=== PATIENT | female | born 1970 | race African-American/Black ===

== ENCOUNTER 2017-05-17 00:26 | Emergency (ER) | payer OTHER ==
[2017-05-17 00:41] VITALS: TEMP 98.6; BMI 27.4
--- NOTE | 2017-05-17 00:52 | PDOC ---
History of Present Illness - General History Source: Patient Exam Limitations: No Limitations <Virginia Posadas - Last Filed: 05/17/17 05:33> - General History Source: Patient Exam Limitations: No Limitations - History of Present Illness Initial Comments: 05/17/17 00:57 The patient is a 46 year old female with a significant past medical history of asthma, hypertension, and surgical history of hysterectomy, who presents to the ER with left sided abdominal pain and flank pain for 25 minutes. Patient describes the pain as sharp. She states the pain wraps around from the left abdomen to the left flank. Patient states the pain feels like labor pains. Denies fever, chills, cough Denies nausea, vomiting, diarrhea Denies lightheadedness Denies headache Denies dysuria, hematuria, frequency, hesitancy <Coral Sosa - Last Filed: 05/17/17 06:29> - General Chief Complaint: Pain, Acute Stated Complaint: ABDOMINAL PAIN Time Seen by Provider: 05/17/17 00:29 Past History - Past Medical History Asthma: Yes HTN: Yes - Surgical History Abdominal Surgery: Yes (GASTRIC SLEEVE) Cholecystectomy: Yes - Immunization History Immunization Up to Date: Yes - Psycho/Social/Smoking Cessation Hx Anxiety: No Suicidal Ideation: No Smoking Status: No Smoking History: Never smoked Have you smoked in the past 12 months: No Number of Cigarettes Smoked Daily: 0 Information on smoking cessation initiated: No Hx Alcohol Use: No Drug/Substance Use Hx: No Substance Use Type: None <Virginia Posadas - Last Filed: 05/17/17 05:33> <Coral Sosa - Last Filed: 05/17/17 06:29> - Past Medical History Allergies/Adverse Reactions: Allergies Allergy/AdvReac Type Severity Reaction Status Date / Time No Known Allergies Allergy Verified 05/17/17 00:36 Home Medications: Ambulatory Orders Valsartan [Diovan] 0 mg PO DAILY 02/22/16 Amlodipine Besylate [Norvasc -] 5 mg PO DAILY #14 tablet 02/23/16 Naproxen [Naprosyn -] 500 mg PO BID PRN #14 tablet 05/17/17 Ondansetron HCl [Zofran] 4 mg PO BID PRN #10 tablet 05/17/17 Tamsulosin HCl [Flomax] 0.4 mg PO HS #10 capsule 05/17/17 Tramadol HCl 50 mg PO TID PRN #12 tablet MDD 3 05/17/17 Review of Systems - Review of Systems Able to Perform ROS?: Yes Comments:: 05/17/17 00:57 GENERAL/CONSTITUTIONAL: No: fever, chills, weakness, loss of appetite. HEAD, EYES, EARS, NOSE AND THROAT: No: change in vision, ear pain, discharge, sore throat, throat swelling. CARDIOVASCULAR: No: chest pain, lightheadedness, palpitations, syncope RESPIRATORY: No: cough, shortness of breath, wheezing, hemoptysis, stridor. GASTROINTESTINAL: (+) left sided abdominal pain. No: nausea, vomiting, diarrhea , rectal bleeding, constipation. GENITOURINARY: (+) left sided flank pain. No: dysuria, hematuria, frequency, urgency MUSCULOSKELETAL: No: back pain, neck pain, joint pain, muscle swelling or pain SKIN AND BREASTS: No: lesions, pallor, rash or easy bruising. NEUROLOGIC: No: headache, vertigo, paresthesias, weakness ENDOCRINE: No: unexplained weight gain or loss HEMATOLOGIC/LYMPHATIC: No: anemia, easy bleeding, swelling nodes <Uts,Coral - Last Filed: 05/17/17 06:29> *Physical Exam - Vital Signs Last Vital Signs Temp Pulse Resp BP Pulse Ox 98.6 F 82 22 123/83 100 05/17/17 00:36 05/17/17 00:36 05/17/17 00:36 05/17/17 00:36 05/17/17 00:36 <Virginia Posadas - Last Filed: 05/17/17 05:33> - Vital Signs Last Vital Signs Temp Pulse Resp BP Pulse Ox 98.6 F 82 22 123/83 100 05/17/17 00:36 05/17/17 00:36 05/17/17 00:36 05/17/17 00:36 05/17/17 00:36 - Physical Exam Comments: 05/17/17 00:59 GENERAL:Patient is crying during examination, holding left abdomen. Difficult to examine. HEAD: Normal with no signs of trauma. EYES: PERRLA, EOMI, sclera anicteric, conjunctiva clear. ENT: Ears normal, nares patent, oropharynx clear without exudates. Moist mucous membranes. EXTREMITIES: Normal range of motion, no edema. No clubbing or cyanosis. No erythema, or tenderness. NEUROLOGICAL: Cranial nerves II through XII grossly intact. Normal speech. No focal neurological deficits. SKIN: Warm, Dry, normal turgor, no rashes or lesions noted. <Coral Sosa - Last Filed: 05/17/17 06:29> ED Treatment Course - LABORATORY CBC & Chemistry Diagram: 05/17/17 00:59 05/17/17 00:59 <Virginia Posadas - Last Filed: 05/17/17 05:33> - LABORATORY CBC & Chemistry Diagram: 05/17/17 00:59 05/17/17 00:59 - RADIOLOGY Radiograph Interpretation: 05/17/17 04:[address] impression reported by Dr. Ion Busch MD: There is a 4 mm stone at the left ureterovesicular junction with moderate hydronephrosis and ureteral distention IMPRESSION: Obstructive uropathy <Coral Sosa - Last Filed: 05/17/17 06:29> Medical Decision Making - Medical Decision Making 05/17/17 00:52 A portion of this note was documented by scribe services under my direction. I have reviewed the details of the note, within reason, and agree with the documentation with the following case summary and management plan written by me. Nursing documentation reviewed and incorporated into medical decision making 05/17/17 01:58 This is a 46-year-old female h/o HTN, s/p cholecystectomy, s/p hysterectomy Pt presents to the ER due to severe left flank pain which pt describes as labor pain Symptoms began acutely 25 minutes prior to arrival to the ER Pt states she was being intimate with her when the pain began Pain is located in the left upper abdomen and wrap around to the left flank No prior stones No hematuria No pyuria No fevers or chills No trauma On examination initially, pt is writhing in pain Pt can not find a comfortable position Holding her left flank/abdomen 05/17/17 02:05 Upon re assessment pt states she feels better No abdominal pain No flank pain No guarding No rebound RRR Lungs clear Awaiting Spiral CT 05/17/17 02:20 color laboratory technician will not scan patient until test performed despite pt having had a hysterectomy years ago 05/17/17 02:39 Laboratory Tests 05/17/17 05/17/1705/17/17 00:59 00:59 02:11 WBC 6.7 D Hgb 11.7 Hct 36.6 Plt Count 209 BUN 11 Creatinine 1.0 Serum , Qual Negative 05/17/17 04:11 Unable to urinate 05/17/17 04:19 TECHNIQUE: CT of the Abdomen and Pelvis with serial axial images extending from the dome of the live through to the perineum was performed without contrast. FINDINGS: Kidneys: There is a 4 mm stone at the left ureterovesicular junction with moderate hydronephrosis and ureteral distention IMPRESSION: Obstructive uropathy 05/17/17 04:28 Awaiting UA 05/17/17 05:[address] Brandon Given nml renal function, no wbc on UA, pain controlled Pt likely will tolerate passing this stone at home Will discharge wiht pain medications and flomax will give abx as well Will ask pt to return to the ER for fevers, chills, increased pain <Virginia Posadas - Last Filed: 05/17/17 05:33> *DC/Admit/Observation/Transfer - Discharge Dispostion Admit: No <Virginia Posadas - Last Filed: 05/17/17 05:33> - Attestations Scribe Attestion: 05/17/17 01:04 Documentation prepared by Coral Sosa, acting as hospital medical assistant for Virginia Posadas MD. <Coral Sosa - Last Filed: 05/17/17 06:29> Diagnosis at time of Disposition: Ureterolithiasis, Kidney stone - Discharge Dispostion Disposition: HOME Condition at time of disposition: Stable - Prescriptions Prescriptions: Tamsulosin HCl [Flomax] 0.4 mg PO HS #10 capsule Naproxen [Naprosyn -] 500 mg PO BID PRN #14 tablet PRN Reason: Pain Tramadol HCl 50 mg PO TID PRN #12 tablet MDD 3 PRN Reason: Pain Ondansetron HCl [Zofran] 4 mg PO BID PRN #10 tablet PRN Reason: Nausea - Referrals Referrals: Roni Alexis MD., MD [Staff Physician] - Sinai Arias MD [Staff Physician] - - Patient Instructions Printed Discharge Instructions: DI for Kidney Stones, Extracorporeal Shock Wave Lithotripsy, Kidney Stones (Alternative Therapy) Additional Instructions: Ms. Thomas Thank you for coming in to the ER today You have a kidney stone you will likely pass it on your own Sometimes, it is difficulty to pass kidney stones In that case, you will need a procedure to make the stone small enough to pass For that reason, you should be sure to follow up with the Urologist within 1 week Please monitor yourself for fevers return to the ER for increased pain, fevers or chills, inability to tolerate foods or liquids, any other concerns or complaints - Post Discharge Activity Work/School Note: Back to Work
[2017-05-17] MEDS ORDERED: KETOROLAC TROMETHAMINE 30 MG/1 ML VIAL IVPUSH ONE (00:53)
[2017-05-17] MEDS ORDERED: morphine CARPU-JECT 4 MG/1 ML DISP.SYRIN IVPUSH ONE (00:53)
[2017-05-17] MEDS ORDERED: KETOROLAC TROMETHAMINE 30 MG/1 ML VIAL ONE (00:55)
[2017-05-17] MEDS ORDERED: morphine CARPU-JECT 4 MG/1 ML DISP.SYRIN ONE (00:55)
[2017-05-17 01:10] LABS: MCH 23.3 pg (25.7-33.7); MCHC 31.9 g/dl (32.0-36.0); MEAN PLT VOLUME 8.9 fl (7.5-11.1); PLATELET COUNT 209 K/MM3 (134-434); RDW 14.7 % (11.6-15.6); WHITE BLOOD COUNT 6.7 K/mm3 (4.0-10.0)
[2017-05-17 01:58] LABS: ALBUMIN 4.3 g/dl (3.4-5.0); ALK PHOS 89 U/L (45-117); ANION GAP 13 (8-16); BILIRUBIN,TOTAL 0.5 mg/dL (0.2-1.0); CALCIUM 9.6 mg/dL (8.5-10.1); CO2 27 mmol/L (21-32); GLUCOSE,RANDOM 104 mg/dL (74-106); SGOT/AST 23 U/L (15-37); SGPT/ALT 22 U/L (12-78); TOT PROT 7.8 g/dl (6.4-8.2)
[2017-05-17] MEDS ORDERED: ONDANSETRON 4 MG/2 ML VIAL IVPUSH ONE ×2 (04:11→04:18)
[2017-05-17] MEDS ORDERED: ONDANSETRON *ODT* 4 MG TABLET ONE (04:11)
[2017-05-17] MEDS ORDERED: SODIUM CHLORIDE 1,000 ML IV STA (04:20)
[2017-05-17 04:42] LABS: URINE APPEARANCE CLEAR; URINE BILIRUBIN NEGATIVE (NEGATIVE); URINE COLOR STRAW; URINE GLUCOSE (UA) NEGATIVE (NEGATIVE); URINE KETONE NEGATIVE (NEGATIVE); URINE LEUK ESTERASE NEGATIVE (NEGATIVE); URINE NITRITE NEGATIVE (NEGATIVE); URINE PROTEIN NEGATIVE (NEGATIVE); URINE UROBILINOGEN NEGATIVE E.U./dl (0.2-1.0)
[2017-05-17 04:50] LABS: URINE BLOOD 1+ (NEGATIVE)
[2017-05-17 04:51] LABS: URINE MUCUS RARE; URINE RBC 31 /hpf (0-3); URINE WBC 1 /hpf (3-5)
[2017-05-17] MEDS ORDERED: traMADol HCL 50 MG TABLET PO ONE (06:27)
[2017-05-17] MEDS ORDERED: traMADol HCL 50 MG TABLET ONE (06:29)
[2017-05-17 06:34] VITALS: BP 128/79; PULSE 76
== END 2017-05-17 06:35 | disposition home or self-care (01) ==
LOC: JER 00:26
PROC: 3E0337Z Introduction of Electrolytic and Water Balance Substance into Peripheral Vein, Percutaneous Approach (ICD-10-PCS; principal; 2017-05-17)
PROC: 3E033NZ Introduction of Analgesics, Hypnotics, Sedatives into Peripheral Vein, Percutaneous Approach (ICD-10-PCS; 2017-05-17)
PROC: 3E0333Z Introduction of Anti-inflammatory into Peripheral Vein, Percutaneous Approach (ICD-10-PCS; 2017-05-17)
PROC: 3E033GC Introduction of Other Therapeutic Substance into Peripheral Vein, Percutaneous Approach (ICD-10-PCS; 2017-05-17)
DX: N13.2 Hydronephrosis with renal and ureteral calculous obstruction (principal); I10 Essential (primary) hypertension; J45.909 Unspecified asthma, uncomplicated
CPT/HCPCS: 36415; 74176; 80053; 81003; 81015; 84703; 85027; 87086; 96361; 96374; 96375; 99282-25

== ENCOUNTER 2017-05-18 06:14 | Inpatient (IN) | payer OTHER ==
[2017-05-18 06:24] VITALS: BMI 26.6
[2017-05-18] MEDS ORDERED: KETOROLAC TROMETHAMINE 30 MG/1 ML VIAL IVPUSH ONE (06:36)
[2017-05-18] MEDS ORDERED: SODIUM CHLORIDE 1,000 ML IV STA (06:36)
[2017-05-18] MEDS ORDERED: ONDANSETRON 4 MG/2 ML VIAL IVPUSH ONE (06:36)
[2017-05-18] MEDS ORDERED: KETOROLAC TROMETHAMINE 30 MG/1 ML VIAL ONE (06:42)
[2017-05-18] MEDS ORDERED: ONDANSETRON 4 MG/2 ML VIAL ONE ×2 (06:42→12:23)
--- NOTE | 2017-05-18 06:42 | PDOC ---
History of Present Illness - General Chief Complaint: Pain, Acute Stated Complaint: PAIN/KIDNEY STONE Time Seen by Provider: 05/18/17 06:29 History Source: Patient, Significant Other Exam Limitations: No Limitations - History of Present Illness Travel History: No Initial Comments: 05/18/17 06:37 46yo Female patient w/ PmHx: Cholecystectomy, Gastric Sleeve, HTN, Hysterectomy , Asthma, and recently renal colic. Patient was seen in ED yesterday and diagnosed with 4 mm stone w/ hydronephrosis. Patient returns with worsening left flank pain, diminished urine output. She states taking the medications as was prescribed when discharged with no relief. Patient denies any other complaints at this time. 05/18/17 07:04 Timing/Duration: reports: getting worse Quality: reports: severe Abdominal Pain Onset Location: reports: flank (Left) Pain Radiation: reports: back Activities at Onset: reports: sleep Treatment Prior to Arrive: improves with: analgesics Aggravating Factors: worse with: None, Defecation, Eating, Emotional upset, Exertion, [place], Movement, Voiding, Change in position Alleviating Factors: worse with: None, Belching, Shallow Breathing, Defecation, Eating, Holding Breath, Passing Gas, Change in Position, Rest, Voiding, Vomiting Past History - Travel Traveled outside of the country in the last 30 days: No Close contact w/someone who was outside of country & ill: No - Past Medical History Allergies/Adverse Reactions: Allergies Allergy/AdvReac Type Severity Reaction Status Date / Time No Known Allergies Allergy Verified 05/18/17 06:22 Home Medications: Ambulatory Orders Valsartan [Diovan] 40 mg PO DAILY 02/22/16 Amlodipine Besylate [Norvasc -] 5 mg PO DAILY #14 tablet 02/23/16 Naproxen [Naprosyn -] 500 mg PO BID PRN #14 tablet 05/17/17 Ondansetron HCl [Zofran] 4 mg PO BID PRN #10 tablet 05/17/17 Tamsulosin HCl [Flomax] 0.4 mg PO HS #10 capsule 05/17/17 Tramadol HCl 50 mg PO TID PRN #12 tablet MDD 3 05/17/17 Asthma: Yes Disorders: Yes (renal stones) HTN: Yes - Surgical History Abdominal Surgery: Yes (GASTRIC SLEEVE) Cholecystectomy: Yes - Immunization History Immunization Up to Date: Yes - Psycho/Social/Smoking Cessation Hx Anxiety: No Suicidal Ideation: No Smoking Status: No Smoking History: Never smoked Have you smoked in the past 12 months: No Number of Cigarettes Smoked Daily: 0 Hx Alcohol Use: No Drug/Substance Use Hx: No Substance Use Type: None Abd/GI Specific PMHX - Complaint Specific PMHX Colitis: No Diverticulitis: No Gall Bladder Disease: No GERD: No Hepatitis: No Pancreatitis: No GI Ulcer Disease: No Review of Systems - Review of Systems Able to Perform ROS?: Yes Is the patient limited Serbian proficient: No ABD/GI: Yes: Nausea, Abdominal cramping. No: Diarrhea, Poor Appetite, Poor Fluid Intake, Vomiting : Yes: Dysuria Musculoskeletal: Yes: Back Pain (Left Flank) All Other Systems: Reviewed and Negative *Physical Exam - Vital Signs Last Vital Signs Temp Pulse Resp BP Pulse Ox 97.7 F 81 28 H 140/99 100 05/18/17 06:23 05/18/17 06:23 05/18/17 06:23 05/18/17 06:23 05/18/17 06:23 - Physical Exam General Appearance: Yes: Nourished, Appropriately Dressed, Apparent Distress, Moderate Distress. No: Mild Distress, Severe Distress Neck: positive: Trachea midline, Supple. negative: Stridor, Lymphadenopathy (R) , Lymphadenopathy (L) Respiratory/Chest: positive: Lungs Clear, Normal Breath Sounds. negative: Chest Tender, Respiratory Distress, Accessory Muscle Use, Labored Respiration, Rapid RR Cardiovascular: positive: Regular Rhythm, Regular Rate Gastrointestinal/Abdominal: positive: Normal Bowel Sounds, Tender (LLQ), Soft, Guarding, Tenderness. negative: Distended, Rebound Musculoskeletal: positive: Normal Inspection, CVA Tenderness, CVA Tenderness (L) . negative: CVA Tenderness (R), Vertebral Tenderness Extremity: positive: Normal Capillary Refill, Normal Inspection, Normal Range of Motion. negative: Pedal Edema, Swelling, Calf Tenderness, Erythema, Inflammation Integumentary: positive: Normal Color, Dry, Warm Neurologic: positive: death claim examiner II-XII NML intact, Fully Oriented, Alert, Normal Mood/ Affect, Normal Response, Motor Strength 5/5 ED Treatment Course - LABORATORY CBC & Chemistry Diagram: 05/18/17 06:47 05/18/17 06:47 - RADIOLOGY Radiology Studies Ordered: Category Date Time Status ABDOMEN & PELVIS CT W/O CONTR [CT] Stat CT Scan 05/18/17 06:36 Ordered
[2017-05-18 06:59] LABS: BASOPHIL 0.9 % (0-2.0); EOSINOPHIL 0.4 % (0-4.5); MCH 23.7 pg (25.7-33.7); MEAN CELL VOLUME 74.1 fl (80-96); MEAN PLT VOLUME 8.8 fl (7.5-11.1); NEUTROPHILS 44.4 % (42.8-82.8); PLATELET COUNT 193 K/MM3 (134-434); RDW 14.9 % (11.6-15.6); WHITE BLOOD COUNT 6.9 K/mm3 (4.0-10.0)
--- NOTE | 2017-05-18 06:59 | PDOC ---
*Physical Exam - Vital Signs Last Vital Signs Temp Pulse Resp BP Pulse Ox 97.7 F 81 28 H 140/99 100 05/18/17 06:23 05/18/17 06:23 05/18/17 06:23 05/18/17 06:23 05/18/17 06:23 ED Treatment Course - LABORATORY CBC & Chemistry Diagram: 05/18/17 06:47 05/18/17 06:47 - Medications Given in the ED: ED Medications Discontinued Medications Generic Name Dose Route Start Last Admin Trade Name Freq PRN Reason Stop Dose Admin Ketorolac Tromethamine 30 mg 05/18/17 06:36 05/18/17 06:50 Toradol Injection - IVPUSH 05/18/17 06:37 30 mg ONCE ONE Administration Ondansetron HCl 4 mg 05/18/17 06:36 05/18/17 06:50 Zofran Injection IVPUSH 05/18/17 06:37 4 mg ONCE ONE Administration Medical Decision Making - Medical Decision Making 05/18/17 06:59 agree with care from JO-ANN Zeng *DC/Admit/Observation/Transfer Diagnosis at time of Disposition: Obstructive uropathy - Discharge Dispostion Condition at time of disposition: Stable
--- NOTE | 2017-05-18 07:21 | PDOC ---
ED Treatment Course - LABORATORY CBC & Chemistry Diagram: 05/18/17 06:47 05/18/17 06:47 - ADDITIONAL ORDERS Additional order review: 05/18/17 06:47 RBC 4.63 MCV 74.1 L MCHC 32.0 RDW 14.9 MPV 8.8 Neutrophils % 44.4 D Lymphocytes % 48.4 H Monocytes % 5.9 Eosinophils % 0.4 Basophils % 0.9 - Medications Given in the ED: ED Medications Discontinued Medications Generic Name Dose Route Start Last Admin Trade Name Christen PRN Reason Stop Dose Admin Ketorolac Tromethamine 30 mg 05/18/17 06:36 05/18/17 06:50 Toradol Injection - IVPUSH 05/18/17 06:37 30 mg ONCE ONE Administration Ondansetron HCl 4 mg 05/18/17 06:36 05/18/17 06:50 Zofran Injection IVPUSH 05/18/17 06:37 4 mg ONCE ONE Administration Progress Note - Progress Note Progress Note: I have received report from JO-ANN Zeng regarding this patient. Pt's initial chief complaint: worsened left flank pain with decreased urine output Pt's work up completed prior to sign out: labs, UA Pt treatment given from prior staff: IV fluids, zofran, toradol Pt plan to be completed: Awaiting CT scan abd/pelvis Dispo: Pending Medical Decision Making - Medical Decision Making A/P: 46 y/o female seen here on 05/17 and diagnosed with obstructive uropathy ( 4mm stone) and discharged to home to pass stone on her own. The patient returned this morning with worsening pain. She was initially assessed by JO-ANN Zeng. Awaiting CT scan abd/pelvis. CT scan abd/pelvis IMPRESSION: Obstructing calculus in the left UVJ. The results are the same as 24 hours ago. The stone has not moved. The patient is writhing in pain. Ordered 4mg IV morphine. Will microblog hospitalist for admission. Will also call urology. Spoke with Dr. Kemp who will remove stone. Spoke with Dr. Hernandez who accepts admission to med/surg via [facility] Ordered Flomax and IV fluids at 150cc/hr Patient is aware of the plan. She states she is having some relief from morphine *DC/Admit/Observation/Transfer Diagnosis at time of Disposition: Obstructive uropathy - Discharge Dispostion Condition at time of disposition: Stable Admit: Yes - Referrals Referrals: Anu Dillard MD [Primary Care Provider] -
[2017-05-18] MEDS ORDERED: morphine CARPU-JECT 4 MG/1 ML DISP.SYRIN IVPUSH ONE (07:23)
[2017-05-18] MEDS ORDERED: morphine CARPU-JECT 4 MG/1 ML DISP.SYRIN ONE ×2 (07:25→12:23)
[2017-05-18 07:38] LABS: ALK PHOS 86 U/L (45-117); ANION GAP 10 (8-16); BILIRUBIN,TOTAL 0.6 mg/dL (0.2-1.0); CALCIUM 9.2 mg/dL (8.5-10.1); CO2 28 mmol/L (21-32); CREATININE 1.4 mg/dL (0.55-1.02); GLUCOSE,RANDOM 108 mg/dL (74-106); SGOT/AST 22 U/L (15-37); SGPT/ALT 25 U/L (12-78); TOT PROT 7.1 g/dl (6.4-8.2)
[2017-05-18] MEDS ORDERED: TAMSULOSIN HCL 0.4 MG CAP.ER.24H (FP) PO ONE (08:25)
[2017-05-18] MEDS: SODIUM CHLORIDE 1,000 ML IV SCH ×2 (08:35→17:27)
[2017-05-18] MEDS ORDERED: TAMSULOSIN HCL 0.4 MG CAP.ER.24H (FP) ONE (08:37)
[2017-05-18] MEDS ORDERED: morphine CARPU-JECT 2 MG/1 ML DISP.SYRIN IVPUSH PRN (10:35)
--- NOTE | 2017-05-18 10:35 | HP ---
CHIEF COMPLAINT: left lower abdominal pain PCP: HISTORY OF PRESENT ILLNESS: This is a 46 yo woman with PMH asthma, HTN and TAHBSO> 20 years ago who presents with continued left sided abdominal pain s/p diagnosis of left sided renal calculi. She states that the pain has not changed over the past 3 days- currently 03/31. Patient has been experiencing nausea with occasional vomiting. 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 Lives in apartment with and 2 adult children Family History: Allergies No Known Allergies Allergy (Verified 05/18/17 06:22) HOME MEDICATIONS: Home Medications 3 Medication Instructions Recorded Valsartan [Diovan] 40 mg PO DAILY 02/22/16 Amlodipine Besylate [Norvasc -] 5 mg PO DAILY #14 tablet 02/23/16 Naproxen [Naprosyn -] 500 mg PO BID PRN #14 tablet 05/17/17 Ondansetron HCl [Zofran] 4 mg PO BID PRN #10 tablet 05/17/17 Tamsulosin HCl [Flomax] 0.4 mg PO HS #10 capsule 05/17/17 Tramadol HCl 50 mg PO TID PRN #12 tablet MDD 3 05/17/17 REVIEW OF SYSTEMS CONSTITUTIONAL: Absent: fever, chills, diaphoresis, generalized weakness, malaise, loss of appetite, weight change HEENT: Absent: rhinorrhea, nasal congestion, throat pain, throat swelling, difficulty swallowing, mouth swelling, ear pain, eye pain, visual changes CARDIOVASCULAR: Absent: chest pain, syncope, palpitations, irregular heart rate, lightheadedness , peripheral edema RESPIRATORY: Absent: cough, shortness of breath, dyspnea with exertion, orthopnea, wheezing, stridor, hemoptysis GASTROINTESTINAL: Present- abdominal pain, nausea, vomiting Absent: abdominal distension, diarrhea, constipation, melena, hematochezia GENITOURINARY: Absent: dysuria, frequency, urgency, hesitancy, hematuria, flank pain, genital pain MUSCULOSKELETAL: Absent: myalgia, arthralgia, joint swelling, back pain, neck pain SKIN: Absent: rash, itching, pallor HEMATOLOGIC/IMMUNOLOGIC: Absent: easy bleeding, easy bruising, lymphadenopathy, frequent infections ENDOCRINE: Absent: unexplained weight gain, unexplained weight loss, heat intolerance, cold intolerance NEUROLOGIC: Absent: headache, focal weakness or paresthesias, dizziness, unsteady gait, seizure, mental status changes, bladder or bowel incontinence PSYCHIATRIC: Absent: anxiety, depression, suicidal or homicidal ideation, hallucinations. PHYSICAL EXAMINATION GENERAL: Awake, alert, and fully oriented, in no acute distress. HEAD: Normal with no signs of trauma. EYES: Pupils equal, round and reactive to light, extraocular movements intact, sclera anicteric, conjunctiva clear. No lid lag. EARS, NOSE, THROAT: Ears normal, nares patent, oropharynx clear without exudates. Moist mucous membranes. NECK: Normal range of motion, supple without lymphadenopathy, JVD, or masses. LUNGS: Breath sounds equal, clear to auscultation bilaterally. No wheezes, and no crackles. No accessory muscle use. HEART: Regular rate and rhythm, normal S1 and S2 without murmur, rub or gallop. ABDOMEN: Soft, not distended, normoactive bowel sounds, no rebound, no masses. No hepatomegaly or splenomegaly. Tenderness and guarding to LLQ. MUSCULOSKELETAL: Normal range of motion at all joints. No bony deformities or tenderness. Left CVA tenderness. UPPER EXTREMITIES: 2+ pulses, warm, well-perfused. No cyanosis. No clubbing. No peripheral edema. LOWER EXTREMITIES: 2+ pulses, warm, well-perfused. No calf tenderness. No peripheral edema. NEUROLOGICAL: Cranial nerves II-XII intact. Normal speech. Normal gait. PSYCHIATRIC: Cooperative. Good eye contact. Appropriate mood and affect. SKIN: Warm, dry, normal turgor, no rashes or lesions noted, normal capillary refill. Imaging: CTAP- Limited study with left calculus in UVJ. Mild hydronephrosis present. Study without significant change since previous exam 05/17. ASSESSMENT/PLAN: A: 46 yo with CHASE due to obstructing left renal calculi. Dr Kemp to evaluate today for extraction. P: 1. CHASE from urinary obstruction - NS@150 - Flomax 0.4mg daily - strain urine - urine cx pending - Urology- Viridiana consulted for stone retrieval - trend BMP 2. Pain - morphine 2mg IVP prn to keep pain level <6/10 3. HTN - slightly elevated on arrival likely from pain - continue valsartan 40mg 4. Asthma - well controlled 5.F/E/N - NPO pending for stenting vs retrieval - NS@150 - replete prn 6. PPX - OOB Dispo- requires observation for her acute medical condition Code Status- FULL CODE Visit type - Emergency Visit Emergency Visit: Yes ED Registration Date: 05/18/17 Care time: The patient presented to the Emergency Department on the above date and was hospitalized for further evaluation of their emergent condition. - New Patient This patient is new to me today: Yes Date on this admission: 05/18/17 - Critical Care Critical Care patient: No
[2017-05-18] MEDS ORDERED: ONDANSETRON 4 MG/2 ML VIAL IVPUSH PRN (10:38)
[2017-05-18 19:32] LABS: URINE APPEARANCE CLEAR; URINE BILIRUBIN NEGATIVE (NEGATIVE); URINE BLOOD 3+ (NEGATIVE); URINE COLOR STRAW; URINE GLUCOSE (UA) NEGATIVE (NEGATIVE); URINE KETONE NEGATIVE (NEGATIVE); URINE LEUK ESTERASE NEGATIVE (NEGATIVE); URINE NITRITE NEGATIVE (NEGATIVE); URINE PROTEIN NEGATIVE (NEGATIVE); URINE UROBILINOGEN NEGATIVE E.U./dl (0.2-1.0)
[2017-05-18 19:33] LABS: URINE MUCUS RARE; URINE RBC 52 /hpf (0-3); URINE WBC 3 /hpf (3-5)
[2017-05-18] MEDS ORDERED: TAMSULOSIN HCL 0.4 MG CAP.ER.24H (FP) PO SCH (22:00)
[2017-05-19 07:18] LABS: BASOPHIL 0.7 % (0-2.0); EOSINOPHIL 1.8 % (0-4.5); MCH 23.7 pg (25.7-33.7); MCHC 32.3 g/dl (32.0-36.0); MEAN CELL VOLUME 73.5 fl (80-96); NEUTROPHILS 37.9 % (42.8-82.8); PLATELET COUNT 144 K/MM3 (134-434); RDW 14.8 % (11.6-15.6); WHITE BLOOD COUNT 4.3 K/mm3 (4.0-10.0)
[2017-05-19 07:57] LABS: ANION GAP 8 (8-16); CALCIUM 8.3 mg/dL (8.5-10.1); CO2 29 mmol/L (21-32); CREATININE 0.7 mg/dL (0.55-1.02); GLUCOSE,RANDOM 79 mg/dL (74-106)
[2017-05-19] MEDS ORDERED: amLODIPine BESYLATE 5 MG TABLET (FP) PO SCH (10:00)
[2017-05-19] MEDS ORDERED: VALSARTAN 40 MG TABLET (FP) PO SCH (10:00)
[2017-05-19] MEDS: SODIUM CHLORIDE 1,000 ML IV SCH ×3 (13:58→23:51)
--- NOTE | 2017-05-19 14:37 | CON.GU ---
Consult Consult Specialty:: Urology Referred by:: Denae Reason for Consultation:: L ureteral calculus - History of Present Illness Chief Complaint: abd pain History of Present Illness: 46 yo f w PMH HTN and asthma pres to ER c/o L sided abd pain assoc w N and V x 5 days found to have L UVJ calculus. cons req. - History Source History Provided By: Patient, Medical Record Limitations to Obtaining History: No Limitations - Past Medical History Cardio/Vascular: Yes: HTN Pulmonary: Yes: Asthma Renal/: Yes: Renal Calculi - Past Surgical History Past Surgical History: Yes: Hysterectomy - Alcohol/Substance Use Hx Alcohol Use: No - Smoking History Smoking history: Never smoked Have you smoked in the past 12 months: No Aproximately how many cigarettes per day: 0 Home Medications - Allergies Allergies/Adverse Reactions: Allergies Allergy/AdvReac Type Severity Reaction Status Date / Time No Known Allergies Allergy Verified 05/18/17 06:22 - Home Medications Home Medications: Ambulatory Orders Valsartan [Diovan] 40 mg PO DAILY 02/22/16 Amlodipine Besylate [Norvasc -] 5 mg PO DAILY #14 tablet 02/23/16 Naproxen [Naprosyn -] 500 mg PO BID PRN #14 tablet 05/17/17 Ondansetron HCl [Zofran] 4 mg PO BID PRN #10 tablet 05/17/17 Tamsulosin HCl [Flomax] 0.4 mg PO HS #10 capsule 05/17/17 Tramadol HCl 50 mg PO TID PRN #12 tablet MDD 3 05/17/17 Review of Systems - Review of Systems Gastrointestinal: reports: Abdominal Pain, Nausea, Vomiting Physical Exam- Vital Signs: Vital Signs Temperature 98.3 F 05/19/17 10:00 Pulse Rate 45 L 05/19/17 10:00 Respiratory Rate 18 05/19/17 10:00 Blood Pressure 107/67 05/19/17 10:00 O2 Sat by Pulse Oximetry (%) 98 05/19/17 14:00 Constitutional: Yes: Well Nourished, No Distress, Calm Gastrointestinal: Yes: Normal Bowel Sounds, Soft Renal/: Yes: WNL Pelvis: Yes: WNL External Genitalia: Yes: WNL Musculoskeletal: Yes: WNL Extremities: Yes: WNL Imaging - Results Cat Scan: Report Reviewed Assessment/Plan Imp: L UVJ calculus, CHASE Plan : IVFS, flomax, analgesia, L ureteroscopic laser lithotripsy and JJ stent insertion
--- NOTE | 2017-05-19 14:46 | HP ---
History & Physical Update - History History: No Change - Physical Physical: No Change - Assessment Assessment: No Change - Plan Plan: No Change
--- NOTE | 2017-05-19 15:34 | OP ---
Operative Note - Note: Operative Date: 05/19/17 Pre-Operative Diagnosis: L ureteral calculus Operation: L ureteroscopic laser lithotripsy and L JJ stent insertion Findings: L distal ureteral calculi Post-Operative Diagnosis: Same as Pre-op Surgeon: Robert Kemp Anesthesiologist/ADMISSIONS CONSULTANT: Bryn Garcia Anesthesia: General Estimated Blood Loss (mls): 0 Drains & Tubes with Location: 6 fr 24 cm L JJ stent Operative Report Dictated: Yes
[2017-05-19] MEDS ORDERED: PROPOFOL 20 ML ONE (15:41)
[2017-05-19] MEDS ORDERED: MIDAZOLAM HCL 2 MG/2 ML SINGLE DOSE VIAL ONE (15:41)
--- NOTE | 2017-05-19 16:03 | PN ---
Physical Exam: SUBJECTIVE: Patient seen and examined at bed side this morning. No abdominal complaints. Denies chest pain, sob, cough, palpitation, abdominal pain, nausea or vomiting. Bowel/Bladder habit normal. Sleep normal. OBJECTIVE: Vital Signs Period Temp Pulse Resp BP Sys/Gonzalez Pulse Ox Last 24 Hr 98.2 F-98.2 F 49-60 20 140-140/80-81 98 GENERAL: Young female, is lying comfortably in bed, is awake, alert, and fully oriented, in no acute distress. HEAD: Normal with no signs of trauma. EYES: EOM intact, no pallor or icterus. ENT: Ears normal, moist mucous membranes. NECK: Trachea midline, full range of motion, supple. LUNGS: Breath sounds equal, clear to auscultation bilaterally, no wheezes, no crackles, no accessory muscle use. HEART: Regular rate and rhythm, S1, S2 without murmur. ABDOMEN: Surgical scar page, Soft, nontender, nondistended, normoactive bowel sounds, no guarding, no rebound, no hepatosplenomegaly, no masses. FLANK: Left sided CVA tenderness. EXTREMITIES: 2+ pulses, warm, well-perfused, no edema. NEUROLOGICAL: Cranial nerves II through XII grossly intact. Normal speech, gait not observed. PSYCH: Normal mood, normal affect. SKIN: Warm, dry, normal turgor, no rashes or lesions noted Active Medications Generic Name Dose Route Start Last Admin Trade Name Freq PRN Reason Stop Dose Admin Amlodipine Besylate 5 mg 05/19/17 10:00 05/19/17 10:47 Norvasc - PO Not Given DAILY DOMINIK Sodium Chloride 1,000 mls @ 150 mls/hr 05/18/17 08:30 05/19/17 13:58 Normal Saline - IV Not Given ASDIR DOMINIK Morphine Sulfate 2 mg 05/18/17 10:35 Morphine Injection - IVPUSH Q4H PRN PAIN Tamsulosin HCl 0.4 mg 05/18/17 22:00 05/18/17 21:07 Flomax - PO 0.4 mg HS DOMINIK Administration Valsartan 40 mg 05/19/17 10:00 05/19/17 10:47 Diovan - PO Not Given DAILY DOMINIK ASSESSMENT/PLAN: Patient is a 46 year old male with significant past medical history of Asthma, Hypertensio, Hysterectomy >20 years, Gastric sleeve 2yrs ago (lost 100 lbs) presented to the ED with complaints of left sided flank pain admitted for evaluation of Renal colic. # Renal calculi with mild left hydronephrosis s/p L ureteroscopic laser lithotripsy and L JJ stent insertion "Day 0" Presented with left flank pain x 2 days, visited the ED x2 days ago, was sent home on flomax, returned back with the same problem Abd/Pelvis CT- 4mm stone in the UVP with Left hydronephrosis NPO IV NS @ 150mls/hr Flomax 0.4mg daily Lithotripsy done today Urologist consult appreciated F/up urine culture # Acute Kidney Injury likely due to dehydration Creatinine improved to 0.7 after IV Hydration Continue IV NS @ 150mls/hr # Hypertension now hypotensive Hold home medication valsartan and Amlodipine 5mg PO daily # Asthma-not in exacerbation # FEN IV NS @ 150mls/hr Electrolytes to be repeated tomorrow NPO now, Sodium controlled diet after dinner # Prophylaxis For DVT: On SCDs For GI: Not indicated # Code status: Full Code # Dispo: Admitted in Med-Surg. Duration of stay unknown. Illness, Investigation and Plan of care explained to the patient. She verbalized understanding. Case discussed with Dr. Torres. Visit type - Emergency Visit Emergency Visit: Yes ED Registration Date: 05/19/17 Care time: The patient presented to the Emergency Department on the above date and was hospitalized for further evaluation of their emergent condition. - New Patient This patient is new to me today: No - Critical Care Critical Care patient: No - Discharge Referral Referred to [facility] Med P.C.: No
[2017-05-19] MEDS ORDERED: ceFAZolin SODIUM 1 GM VIAL IVPB ONE (16:05)
[2017-05-19] MEDS ORDERED: DEXAMETHASONE SOD PHOSPHATE 4 MG/1 ML VIAL ONE (16:15)
[2017-05-19] MEDS ORDERED: ceFAZolin SODIUM 1 GM VIAL ONE (16:15)
[2017-05-19] MEDS ORDERED: morphine CARPU-JECT 2 MG/1 ML DISP.SYRIN IVPUSH PRN (17:19)
[2017-05-19] MEDS ORDERED: LACTATED RINGERS SOLUTION 1,000 ML IV SCH (18:00)
[2017-05-19] MEDS: amLODIPine BESYLATE 5 MG TABLET (FP) PO SCH (18:29)
[2017-05-19] MEDS: VALSARTAN 40 MG TABLET (FP) PO SCH (18:29)
--- NOTE | 2017-05-19 18:29 | PN ---
Teaching Attending Note Name of Resident: Jennifer Schultz ATTENDING PHYSICIAN STATEMENT I saw and evaluated the patient. I reviewed the resident's note and discussed the case with the resident. I agree with the resident's findings and plan as documented. SUBJECTIVE: seen at 11 am , pain had improved by then . OBJECTIVE: NA D Cv : RRR Lung s: CTAB ext : no edema ABd : soft, TTP in LLQ , LUQ , L CVA tenderness nl BS ASSESSMENT AND PLAN: 46 y/o LAdy withh/o asthma, HTN , nephrolithiasis who presented with L abd pain , was found to have obstructing L UVJ stone with L sided hydronephrosis 1- Obstructing L UVJ stone with L sided hydronephrosis: s/p cystoscopy with lithotripsy and stent placement no evidence of UTI. decrease IVF , dc in am pain control if needed dc in am
--- NOTE | 2017-05-19 18:35 | OP ---
DATE OF OPERATION: 05/19/2017 PREOPERATIVE DIAGNOSIS: Left ureteral calculus. POSTOPERATIVE DIAGNOSIS: Left ureteral calculus. PROCEDURE: Cystoscopy, left ureteroscopic laser lithotripsy and left JJ stent insertion. SURGEON: Robert Whitney MD DREDGE CAPTAIN: None. ANESTHESIA: General via laryngeal mask. ANESTHESIOLOGIST: Jose. SPECIMENS: None. CULTURES: None. DRAINS: A 6-Djiboutian 24 cm left JJ stent. ESTIMATED BLOOD LOSS: None. COMPLICATIONS: None. DESCRIPTION OF PROCEDURE: The patient was brought into the operating room and placed on the operating room table in supine position. After administration of general anesthesia via laryngeal mask, intravenous antibiotics were administered and the patient was placed in the dorsal lithotomy position. The vagina and perineum were prepped and draped in the usual sterile manner. A 22-Djiboutian cystoscope was inserted into the bladder with the obturator in place. The obturator was removed and urine was evacuated. The 30-degree telescope was inserted and cystoscopy was performed. This demonstrated no foreign bodies, tumors, stones, or inflammation. Both ureteral orifices were in their usual location with clear efflux bilaterally. The left ureteral orifice was cannulated with a 0.038 guidewire, which was advanced to the level of the left renal pelvis under fluoroscopic and direct visual guidance. The bladder was emptied. The cystoscope was removed. Now, semirigid ureteroscope was inserted alongside the guidewire where a distal left ureteral calculus was visualized. The 365 micron laser fiber was inserted. Laser lithotripsy was done until the stone was fragmented into minute pieces. The ureteroscope was removed and retrograde pyelogram was done demonstrating mild left hydronephrosis. No extravasation of contrast. No filling defects. The 6-Djiboutian 24 cm left JJ stent was now inserted over the guidewire under direct visual and fluoroscopic guidance leaving one coil in the renal pelvis and one coil in the bladder. The bladder was emptied. The instruments were removed. The stent was secured to the thigh with a Tegaderm. She tolerated the procedure well and was transferred to the recovery room in stable condition. She will be followed in the office for stent removal. ROBERT WHITNEY M.D. [id number]
[2017-05-19] MEDS ORDERED: TAMSULOSIN HCL 0.4 MG CAP.ER.24H (FP) PO SCH (22:00)
[2017-05-19] MEDS ORDERED: ONDANSETRON 4 MG/2 ML VIAL IVPUSH PRN (23:35)
[2017-05-19] MEDS ORDERED: ONDANSETRON 4 MG/2 ML VIAL IVPB PRN (23:40)
[2017-05-20] MEDS: SODIUM CHLORIDE 1,000 ML IV SCH (06:08)
[2017-05-20 06:54] VITALS: TEMP 98.8
[2017-05-20 08:22] LABS: MCH 23.8 pg (25.7-33.7); MCHC 32.7 g/dl (32.0-36.0); MEAN CELL VOLUME 72.7 fl (80-96); MEAN PLT VOLUME 9.1 fl (7.5-11.1); PLATELET COUNT 155 K/MM3 (134-434); WHITE BLOOD COUNT 7.3 K/mm3 (4.0-10.0)
[2017-05-20 08:47] LABS: ANION GAP 9 (8-16); CALCIUM 8.4 mg/dL (8.5-10.1); CO2 25 mmol/L (21-32); CREATININE 0.5 mg/dL (0.55-1.02); GLUCOSE,RANDOM 76 mg/dL (74-106)
[2017-05-20] MEDS ORDERED: VALSARTAN 40 MG TABLET (FP) PO SCH (10:00)
[2017-05-20] MEDS ORDERED: amLODIPine BESYLATE 5 MG TABLET (FP) PO SCH (10:00)
[2017-05-20 10:50] VITALS: BP 120/66; PULSE 56
[2017-05-20] MEDS: amLODIPine BESYLATE 5 MG TABLET (FP) PO SCH (11:04)
[2017-05-20] MEDS: VALSARTAN 40 MG TABLET (FP) PO SCH (11:05)
--- NOTE | 2017-05-20 14:15 | PN ---
Teaching Attending Note Name of Resident: Jennifer Schultz ATTENDING PHYSICIAN STATEMENT I saw and evaluated the patient. I reviewed the resident's note and discussed the case with the resident. I agree with the resident's findings and plan as documented. SUBJECTIVE: no fever or chills, has no abd pain. no N/V OBJECTIVE: NAD Cv : RRR Lungs: CTAB ext : no edema ABd : soft, NT ,No CVA tenderness nl BS ASSESSMENT AND PLAN: 46 y/o LAdy withh/o asthma, HTN , nephrolithiasis who presented with L abd pain , was found to have obstructing L UVJ stone with L sided hydronephrosis 1- Obstructing L UVJ stone with L sided hydronephrosis: s/p cystoscopy with lithotripsy and stent placement no evidence of UTI. change morphine to po NSAIDS she pulled the string our accidentally, Dr. Felix notified and recommended taping the rest of the string as the stent is not protruding. f/u with Dr. Kemp Dc home
--- NOTE | 2017-05-20 14:23 | DS ---
Physical Exam: SUBJECTIVE: Patient seen and examined at bed side this morning. No abdominal complaints. Denies chest pain, sob, cough, palpitation, abdominal pain, nausea or vomiting. Bowel/Bladder habit normal. Sleep normal. OBJECTIVE: Vital Signs Period Temp Pulse Resp BP Sys/Gonzalez Pulse Ox Last 24 Hr 97.9 F-98.8 F 42-57 12-18 108-158/64-83 97-100 PHYSICAL EXAM GENERAL: Young female, is lying comfortably in bed, is awake, alert, and fully oriented, in no acute distress. HEAD: Normal with no signs of trauma. EYES: EOM intact, no pallor or icterus. ENT: Ears normal, moist mucous membranes. NECK: Trachea midline, full range of motion, supple. LUNGS: Breath sounds equal, clear to auscultation bilaterally, no wheezes, no crackles, no accessory muscle use. HEART: Regular rate and rhythm, S1, S2 without murmur. ABDOMEN: Surgical scar page, Soft, nontender, non distended, normo active bowel sounds, no guarding, no rebound, no hepatosplenomegaly, no masses. FLANK: Left sided CVA tenderness has resolved. GENITALIA: String from the urethra. EXTREMITIES: 2+ pulses, warm, well-perfused, no edema. NEUROLOGICAL: Cranial nerves II through XII grossly intact. Normal speech, normal gait. PSYCH: Normal mood, normal affect. SKIN: Warm, dry, normal turgor, no rashes or lesions noted LABS Laboratory Results - last 24 hr 05/20/17 05/20/17 06:35 06:35 WBC 7.3 D RBC 4.12 Hgb 9.8 L Hct 29.9 L MCV 72.7 L MCHC 32.7 RDW 15.0 Plt Count 155 MPV 9.1 Sodium 143 Potassium 3.6 Chloride 109 H Carbon Dioxide 25 Anion Gap 9 BUN 9 D Creatinine 0.5 L D Random Glucose 76 Calcium 8.4 L Abnormal Lab Results 05/20/17 05/20/17 06:35 06:35 Hgb 9.8 L Hct 29.9 L MCV 72.7 L Chloride 109 H Creatinine 0.5 L D Calcium 8.4 L 05/18/2017: Noted a calcification in the region of the left ureterovesical junction consistent with a partially obstructing calculus. A mild degree of left -sided hydronephrosis is identified. HOSPITAL COURSE: Date of Admission:05/19/17 Date of Discharge: 05/20/17 Patient is a 46 year old male with significant past medical history of Asthma, Hypertensio, Hysterectomy >20 years, Gastric sleeve 2yrs ago (lost 100 lbs) presented to the ED with complaints of left sided flank pain admitted for evaluation of Renal colic. Obstructing L UVJ stone with L sided hydronephrosis: s/p cystoscopy with lithotripsy and stent placement. Patient presented to the ED with severe left sided flank pain. CT abdomen was done which showed 4mm stone in the UVP with Left hydronephrosis. Urology was consulted. Above mentioned procedure was done on 05/19/17. Patient is stable after procedure, pain is well controlled. Hence discharging her home on Flomax and Naproxen. Just before discharge, patient accidentaly pulled out the string slightly from the urethra, on exam found that it is still intact. Call placed to Dr. Felix and informed who recommended to apply a tape on the string attached to the thigh and have her f/up in a week. Appointment has been scheduled with Dr. Felix in May 27, 2017 at 10am. For pain, Naproxen 500mg BID PRN ordered. Call placed to the patient to recommend her to take Naproxen 250mg BID PRN only. Acute Kidney Injury likely due to dehydration which resolved after IV Hydration. Plan of care explained to the patient. She verbalized understanding. Case discussed with Dr. Torres. Minutes to complete discharge: 45 Discharge Summary Reason For Visit: OBSTRUCTIVE UROPATHY Current Active Problems Kidney stone (Acute) Obstructive uropathy (Acute) Ureterolithiasis (Acute) Condition: Stable - Instructions Diet, Activity, Other Instructions: You were admitted for the treatment of left sided kidney stones. Kidney stone was removed by performing a procedure called Lithotripsy and a stent was placed. You are stable now and will send you home with some pain medication. Please make sure to follow up with Dr. Kemp (Urologist) at his clinic in May 27, 2017 at 10:30am. Please call and confirm it. Please follow up with your primary doctor within this week. Return to the Emergency Department if symptoms worsen or if you develop any new symptoms. Referrals: Robert Kemp MD [Staff Physician] - 1 Week Anu Dillard MD [Primary Care Provider] - 1 Week Disposition: HOME - Home Medications Comprehensive Discharge Medication List: Ambulatory Orders Valsartan [Diovan] 40 mg PO DAILY 02/22/16 Amlodipine Besylate [Norvasc -] 5 mg PO DAILY #14 tablet 02/23/16 Ondansetron HCl [Zofran] 4 mg PO BID PRN #10 tablet 05/17/17 Tramadol HCl 50 mg PO TID PRN #12 tablet MDD 3 05/17/17 Naproxen [Naprosyn -] 500 mg PO BID PRN #14 tablet 05/20/17 Tamsulosin HCl [Flomax -] 0.4 mg PO DAILY #15 capsule 05/20/17 This patient is new to me today: No Emergency Visit: Yes ED Registration Date: 05/19/17 Care time: The patient presented to the Emergency Department on the above date and was hospitalized for further evaluation of their emergent condition. Critical Care patient: No - Discharge Referral Referred to [facility] Med P.C.: No
== END 2017-05-20 15:16 | disposition home or self-care (01) | DRG 446 ==
LOC: JER 06:14 → UNDOADMOB 08:35 → INTOOBSV 08:35 → JERBED 08:35 → J5S 15:29 → OBSVTOIN 05-19 12:30
PROVIDERS: ADMIT Internal Medicine; ATTEND Internal Medicine
PROC: 0TC78ZZ Extirpation of Matter from Left Ureter, Via Natural or Artificial Opening Endoscopic (ICD-10-PCS; principal; 2017-05-19 16:00)
PROC: 0T778DZ Dilation of Left Ureter with Intraluminal Device, Via Natural or Artificial Opening Endoscopic (ICD-10-PCS; 2017-05-19 16:00)
PROC: BT1FZZZ Fluoroscopy of Left Kidney, Ureter and Bladder (ICD-10-PCS; 2017-05-19 16:00)
DX: N13.2 Hydronephrosis with renal and ureteral calculous obstruction (principal); N17.9 Acute kidney failure, unspecified; I10 Essential (primary) hypertension; J45.909 Unspecified asthma, uncomplicated; E86.0 Dehydration; N13.9 Obstructive and reflux uropathy, unspecified
CPT/HCPCS: 36415; 74176-TC; 76000-TC; 80048; 80053; 81003; 81015; 85025; 85027; 94760; 99283-25; G0378

== ENCOUNTER 2017-12-22 18:19 | Emergency (ER) | payer OTHER ==
[2017-12-22 19:16] VITALS: BP 117/74; PULSE 82; TEMP 101; BMI 29.2
--- NOTE | 2017-12-22 19:17 | PDOC ---
Rapid Medical Evaluation Time Seen by Provider: 12/22/17 19:11 Medical Evaluation: Allergies Allergy/AdvReac Type Severity Reaction Status Date / Time No Known Allergies Allergy Verified 05/18/17 06:22 12/22/17 19:12 The patient presents with a chief complaint of: Headache for two weeks with worsening pain over the last two days. Hx of HBP taking all home meds and tylenol for the headache. Headache is all over. Admits to dizziness and body aches. No N/V. last took tylenol 3 hours ago. I have performed a brief in-person evaluation of this patient; Pertinent physical exam findings: Ambulatory, no respiratory distress. Temperature 101.1. conjunctivitis b/l I have ordered the following: influenza The patient will proceed to the ED for further evaluation.
--- NOTE | 2017-12-22 20:12 | PDOC ---
History of Present Illness - General History Source: Patient Exam Limitations: No Limitations - History of Present Illness Initial Comments: 12/22/17 20:44 The patient is a 47 year old female, with a significant past medical history of anemia, asthma, hypertension(compliant with medications), and kidney stones, who presents to the emergency department with headache and dizziness for approximately 2 weeks. The patient reports the pain is diffuse in nature and exacerbated with movement. She denies any recent head trauma, changes in vision , photophobia, numbness, tingling, or weakness. Patient reports she has a history of headaches, but never this severe. Patient reports taking Tylenol for her pain, with minimal relief of symptoms. She denies any neck or back pain. She reports some chills and body aches, but denies any recent fever, cough, or sore throat. She denies any chest pain, shortness of breath, diaphoresis, or palpitations. She denies any nausea or vomiting. Allergies: NKDA Past Surgical History: Cholecystectomy. Social History: Non smoker. No ETOH or recreational drug use. PCP: Dr. Anu Alcaraz <Brayan Sr - Last Filed: 12/22/17 21:29> <Debora Finch - Last Filed: 12/22/17 23:33> - General Chief Complaint: Cold Symptoms Stated Complaint: HEADACHE Time Seen by Provider: 12/22/17 19:11 Past History <Brayan Sr - Last Filed: 12/22/17 21:29> - Past Medical History Asthma: Yes COPD: No Disorders: Yes (renal stones) HTN: Yes - Surgical History Abdominal Surgery: Yes (GASTRIC SLEEVE) Cholecystectomy: Yes - Immunization History Immunization Up to Date: Yes - Suicide/Smoking/Psychosocial Hx Smoking Status: No Smoking History: Never smoked Have you smoked in the past 12 months: No Number of Cigarettes Smoked Daily: 0 Hx Alcohol Use: No Drug/Substance Use Hx: No Substance Use Type: None <Debora Finch - Last Filed: 12/22/17 23:33> - Past Medical History Allergies/Adverse Reactions: Allergies Allergy/AdvReac Type Severity Reaction Status Date / Time No Known Allergies Allergy Verified 12/22/17 19:13 Home Medications: Ambulatory Orders Valsartan [Diovan] 40 mg PO DAILY 02/22/16 Amlodipine Besylate [Norvasc -] 5 mg PO DAILY #14 tablet 02/23/16 Ondansetron HCl [Zofran] 4 mg PO BID PRN #10 tablet 05/17/17 Tramadol HCl 50 mg PO TID PRN #12 tablet MDD 3 05/17/17 Naproxen Sodium [Naproxen Sodium ER] 250 mg PO BID PRN #10 tablet.er 05/20/17 Tamsulosin HCl [Flomax -] 0.4 mg PO DAILY #15 capsule 05/20/17 Review of Systems - Review of Systems Able to Perform ROS?: Yes Comments:: 12/22/17 20:43 GENERAL/CONSTITUTIONAL: Yes chills. No fever. No weakness. HEAD, EYES, EARS, NOSE AND THROAT: No change in vision. No ear pain or discharge. No sore throat. GASTROINTESTINAL: No nausea, vomiting, diarrhea or constipation. GENITOURINARY: No dysuria, frequency, or change in urination. CARDIOVASCULAR: No chest pain or shortness of breath. RESPIRATORY: No cough, wheezing, or hemoptysis. MUSCULOSKELETAL: Yes diffuse joint aches. No muscle swelling or pain. No neck or back pain. SKIN: No rash NEUROLOGIC: Yes headache and dizziness. No loss of consciousness, or change in strength/sensation. ENDOCRINE: No increased thirst. No abnormal weight change. HEMATOLOGIC/LYMPHATIC: No anemia, easy bleeding, or history of blood clots. ALLERGIC/IMMUNOLOGIC: No hives or skin allergy. <Brayan Sr - Last Filed: 12/22/17 21:29> *Physical Exam - Vital Signs Last Vital Signs Temp Pulse Resp BP Pulse Ox 101 F H 82 18 117/74 12/22/17 19:14 12/22/17 19:14 12/22/17 19:14 12/22/17 19:14 - Physical Exam Comments: 12/22/17 20:43 Constitutional: Awake, alert, oriented. No acute distress. Head: Normocephalic. Atraumatic Eyes: PERRL. EOMI. Conjunctivae are not pale. ENT: Mucous membranes are moist and intact. Posterior pharynx without exudates or erythema. Uvula midline. Neck: Supple. Full ROM. No lymphadenopathy. Cardiovascular: Regular rate. Regular rhythm. S1, S2 regular. Distal pulses are 2+ and symmetric. Pulmonary/Chest: No evidence of respiratory distress. Clear to auscultation bilaterally No wheezing, rales or rhonchi. Abdominal: Soft and non-distended. There is no tenderness. No rebound, guarding or rigidity. No organomegaly. No palpable masses. Good bowel sounds. Back: No CVA tenderness. Musculoskeletal: No edema. No cyanosis. No clubbing. Full range of motion in all extremities. No calf tenderness. Radial/pedal pulses are intact and 2+ bilaterally Skin: Skin is warm and dry. No petechiae. No purpura. Neurological: Alert and oriented to person, place, and time. Cranial nerves II -XII are grossly intact. Normal speech. Strength is grossly symmetric. No sensory deficits. Psychiatric: Good eye contact. Normal interaction, affect and behavior. <Brayan Sr - Last Filed: 12/22/17 21:29> - Vital Signs Last Vital Signs Temp Pulse Resp BP Pulse Ox 101 F H 82 18 117/74 12/22/17 19:14 12/22/17 19:14 12/22/17 19:14 12/22/17 19:14 <Debora Finch - Last Filed: 12/22/17 23:33> ED Treatment Course - ADDITIONAL ORDERS Additional order review: 12/22/17 19:35 Influenza Types A,B Antigen (JORGITO) - Final Nasopharyngeal Swab - Final <Brayan Sr - Last Filed: 12/22/17 21:29> - LABORATORY CBC & Chemistry Diagram: 12/22/17 21:26 12/22/17 21:26 <Debora Finch - Last Filed: 12/22/17 23:33> Medical Decision Making - Medical Decision Making 12/22/17 21:55 a/p: 47yo female with verde x 2 weeks diffuse verde dizziness no n/v/d no f/c. no paresthesias will check labs, head ct ivf hydration reglanandreaadryl will monitor and reassess 12/22/17 23:[address] discussed with the patient verde resolved stable for d/c to home and follow up with her PMD. Will give neuro follow up as well neuro intact <Debora Finch - Last Filed: 12/22/17 23:33> *DC/Admit/Observation/Transfer - Attestations Scribe Attestion: 12/22/17 20:43 Documentation prepared by Brayan Sr, acting as medical transcriptionist for Debora Finch DO. <Brayan Sr - Last Filed: 12/22/17 21:29> - Discharge Dispostion Admit: No - Attestations Physician Attestion: 12/22/17 23:33 I, Dr. Debora Finch DO, attest that this document has been prepared under my direction and personally reviewed by me in its entirety. I further attest, that it accurately reflects all work, treatment, procedures and medical decision -making performed by me. <Debora Finch - Last Filed: 12/22/17 23:33> Diagnosis at time of Disposition: Headache - Discharge Dispostion Disposition: HOME Condition at time of disposition: Stable - Referrals Referrals: Anu Dillard MD [Primary Care Provider] - Ever Garcia MD [Staff Physician] - - Patient Instructions Printed Discharge Instructions: DI for Headache Additional Instructions: Please make an appointment to see your PMD in 2-3 days. Please follow up with neurology for further evaluation of your headaches. Please take tylenol or motrin for the headache if it returns. Please return to the ED with any further complaints. - Post Discharge Activity
[2017-12-22] MEDS ORDERED: SODIUM CHLORIDE 0.9% 1000 ML INFUS.BAG IV ONE (20:43)
[2017-12-22] MEDS ORDERED: METOCLOPRAMIDE HCL INJECTION 10 MG/2 ML VIAL IVPUSH ONE (20:43)
[2017-12-22] MEDS ORDERED: METOCLOPRAMIDE HCL INJECTION 10 MG/2 ML VIAL ONE (21:15)
[2017-12-22 21:38] LABS: BASO % 0.6 % (0-2.0); EOS % 0.5 % (0-4.5); HEMOGLOBIN 11.1 GM/dL (10.7-15.3); LYMPH % 53.3 % (8-40); MCH 23.4 pg (25.7-33.7); MCHC 31.9 g/dl (32.0-36.0); MEAN CELL VOLUME 73.3 fl (80-96); MEAN PLT VOLUME 8.5 fl (7.5-11.1); MONO % 5.6 % (3.8-10.2); PLATELET COUNT 220 K/MM3 (134-434); RBC 4.77 M/mm3 (3.60-5.2); RDW 15.9 % (11.6-15.6); WHITE BLOOD COUNT 6.2 K/mm3 (4.0-10.0)
[2017-12-22 21:42] LABS: HCG,QUALITATIVE URINE NEGATIVE
[2017-12-22 21:44] LABS: URINE APPEARANCE CLEAR; URINE BILIRUBIN NEGATIVE (NEGATIVE); URINE BLOOD 1+ (NEGATIVE); URINE COLOR LTYELLOW; URINE GLUCOSE (UA) NEGATIVE (NEGATIVE); URINE KETONE NEGATIVE (NEGATIVE); URINE LEUK ESTERASE TRACE (NEGATIVE); URINE NITRITE NEGATIVE (NEGATIVE); URINE PROTEIN NEGATIVE (NEGATIVE); URINE UROBILINOGEN NEGATIVE mg/dL (0.2-1.0)
[2017-12-22 21:47] LABS: EPI CELLS RARE /HPF (FEW); URINE HYALINE CAST 1 /lpf; URINE MUCUS RARE
[2017-12-22 22:08] LABS: ALBUMIN 4.2 g/dl (3.4-5.0); ANION GAP 7 (8-16); BILIRUBIN,TOTAL 0.5 mg/dL (0.2-1.0); BLOOD UREA NITROGEN 16 mg/dL (7-18); CALCIUM 8.9 mg/dL (8.5-10.1); CHLORIDE 108 mmol/L (98-107); CO2 27 mmol/L (21-32); CREATININE 0.7 mg/dL (0.55-1.02); GLUCOSE,RANDOM 88 mg/dL (74-106); SGOT/AST 14 U/L (15-37); SGPT/ALT 29 U/L (12-78); SODIUM 142 mmol/L (136-145); TOT PROT 7.7 g/dl (6.4-8.2)
[2017-12-22 22:09] LABS: ALK PHOS 93 U/L (45-117)
[2017-12-22] MEDS ORDERED: IBUPROFEN 600 MG TABLET (FP) PO ONE ×2 (23:31→23:53)
== END 2017-12-22 23:58 | disposition home or self-care (01) ==
LOC: JER 18:19 → JERFT 18:19 → JER 23:58
PROC: 3E0337Z Introduction of Electrolytic and Water Balance Substance into Peripheral Vein, Percutaneous Approach (ICD-10-PCS; principal; 2017-12-22)
PROC: 3E033GC Introduction of Other Therapeutic Substance into Peripheral Vein, Percutaneous Approach (ICD-10-PCS; 2017-12-22)
DX: R51 Headache (principal)
CPT/HCPCS: 36415; 70450-TC; 80053; 81003; 81015; 83735; 84703; 85025; 87804; 96374; 96375; 99281-25

== ENCOUNTER 2018-09-09 17:54 | Emergency (ER) | payer OTHER ==
[2018-09-09 18:08] VITALS: BP 118/73; PULSE 78; TEMP 98; BMI 30.9
--- NOTE | 2018-09-09 18:13 | PDOC ---
Rapid Medical Evaluation Chief Complaint: Pain Time Seen by Provider: 09/09/18 18:07 Medical Evaluation: Allergies Allergy/AdvReac Type Severity Reaction Status Date / Time No Known Allergies Allergy Verified 09/09/18 18:03 Vital Signs Temp Pulse Resp BP Pulse Ox 98.0 F 78 18 118/73 100 09/09/18 18:03 09/09/18 18:03 09/09/18 18:03 09/09/18 18:03 09/09/18 18:03 09/09/18 18:10 I have performed a brief in-person evaluation of this patient. The patient presents with a chief complaint of: left flank pain for 2 weeks. Denies fever, N/V, urinary frequency or dysuria. patient report pain feels similar to when she had kidney stone Pertinent physical exam findings: mild left flank pain I have ordered the following: UA, UCX, HCG, GC/CT testing. KUB The patient will proceed to the ED for further evaluation. Discharge Disposition - Diagnosis Left flank discomfort - Referrals - Patient Instructions - Post Discharge Activity
[2018-09-09] MEDS ORDERED: KETOROLAC TROMETHAMINE 60 MG/2 ML VIAL IM ONE (19:14)
[2018-09-09] MEDS ORDERED: KETOROLAC TROMETHAMINE 60 MG/2 ML VIAL ONE (19:20)
--- NOTE | 2018-09-09 19:22 | PDOC ---
History of Present Illness - General Chief Complaint: Pain Stated Complaint: LEFT SIDE PAIN Time Seen by Provider: 09/09/18 18:07 History Source: Patient Exam Limitations: No Limitations - History of Present Illness Travel History: No Initial Comments: 09/09/18 19:15 48 yr female with c/o left flank pain for 2weeks history of kidney stone feels the same. neg nvd neg fever or urinary complaints. no relief with tylenol. Past History - Past Medical History Allergies/Adverse Reactions: Allergies Allergy/AdvReac Type Severity Reaction Status Date / Time No Known Allergies Allergy Verified 09/09/18 18:03 Home Medications: Ambulatory Orders Valsartan [Diovan] 40 mg PO DAILY 02/22/16 Amlodipine Besylate [Norvasc -] 5 mg PO DAILY #14 tablet 02/23/16 Ondansetron HCl [Zofran] 4 mg PO BID PRN #10 tablet 05/17/17 Tramadol HCl 50 mg PO TID PRN #12 tablet MDD 3 05/17/17 Naproxen Sodium [Naproxen Sodium ER] 250 mg PO BID PRN #10 tablet.er 05/20/17 Tamsulosin HCl [Flomax -] 0.4 mg PO DAILY #15 capsule 05/20/17 Asthma: Yes COPD: No Disorders: Yes (renal stones) HTN: Yes - Surgical History Abdominal Surgery: Yes (GASTRIC SLEEVE) Cholecystectomy: Yes - Immunization History Immunization Up to Date: Yes - Suicide/Smoking/Psychosocial Hx Smoking Status: No Smoking History: Never smoked Have you smoked in the past 12 months: No Number of Cigarettes Smoked Daily: 0 Hx Alcohol Use: No Drug/Substance Use Hx: No Substance Use Type: None Abd/GI Specific PMHX - Complaint Specific PMHX Colitis: No Diverticulitis: No Gall Bladder Disease: No GERD: No Hepatitis: No Pancreatitis: No GI Ulcer Disease: No *Physical Exam - Vital Signs Last Vital Signs Temp Pulse Resp BP Pulse Ox 98.0 F 78 18 118/73 100 09/09/18 18:03 09/09/18 18:03 09/09/18 18:03 09/09/18 18:03 09/09/18 18:03 - Physical Exam General Appearance: Yes: Nourished, Appropriately Dressed HEENT: positive: EOMI, EUGENE Neck: positive: Supple. negative: Tender Respiratory/Chest: positive: Lungs Clear, Normal Breath Sounds Cardiovascular: positive: Regular Rhythm, Regular Rate Gastrointestinal/Abdominal: positive: Normal Bowel Sounds, Soft. negative: Tender Musculoskeletal: positive: Normal Inspection, Other (reproducable ttp left flank ). negative: CVA Tenderness, CVA Tenderness (R), CVA Tenderness (L), Decreased Range of Motion, Muscle Spasm, Vertebral Tenderness Extremity: positive: Normal Capillary Refill, Normal Inspection, Normal Range of Motion Integumentary: positive: Normal Color, Dry, Warm Neurologic: positive: tipple oiler II-XII NML intact, Fully Oriented, Alert, Normal Mood/ Affect Medical Decision Making - Medical Decision Making 09/09/18 19:16 cc: left flank pain non radiating for 2 weeks history of same in the past kidney stone post hysterectomy, choleycystectomy will send UA, toradol Ct stone 09/09/18 19:40 endorsed to Gopal Galindo pending CT result *DC/Admit/Observation/Transfer Diagnosis at time of Disposition: Left flank discomfort - Referrals Referrals: Nina Bolton MD [Primary Care Provider] - Brown Turcios MD [Staff Physician] - - Patient Instructions Additional Instructions: drink pleanty of water avoid iced tea, soda follow with the urologist listed below return if worse take extra strength tylenol as directed for pain Return to ER for any worsening symptoms - Post Discharge Activity
[2018-09-09 19:35] LABS: URINE APPEARANCE CLEAR; URINE BILIRUBIN NEGATIVE (<2.0 mg/dL); URINE COLOR YELLOW; URINE GLUCOSE (UA) NEGATIVE (NEGATIVE); URINE KETONE NEGATIVE (NEGATIVE); URINE LEUK ESTERASE NEGATIVE (NEGATIVE); URINE NITRITE NEGATIVE (NEGATIVE); URINE PROTEIN NEGATIVE (NEGATIVE)
[2018-09-09 19:37] LABS: HCG,QUALITATIVE URINE Negative
--- NOTE | 2018-09-09 20:33 | PDOC ---
*Physical Exam - Vital Signs Last Vital Signs Temp Pulse Resp BP Pulse Ox 98.0 F 78 18 118/73 100 09/09/18 18:03 09/09/18 18:03 09/09/18 18:03 09/09/18 18:03 09/09/18 18:03 - Physical Exam General Appearance: Yes: Appropriately Dressed. No: Apparent Distress Cardiovascular: positive: Regular Rhythm, Regular Rate Gastrointestinal/Abdominal: positive: Normal Bowel Sounds, Soft. negative: Tender Musculoskeletal: positive: Normal Inspection. negative: CVA Tenderness ED Treatment Course - ADDITIONAL ORDERS Additional order review: Laboratory Results 09/09/18 19:00 Urine Color Yellow Urine Appearance Clear Urine pH 5.0 Ur Specific Pike 1.028 Urine Protein Negative Urine Glucose (UA) Negative Urine Ketones Negative Urine Blood Negative Urine Nitrite Negative Urine Bilirubin Negative Urine Urobilinogen 2.0 H Ur Leukocyte Esterase Negative Urine HCG, Qual Negative - Medications Given in the ED: ED Medications Discontinued Medications Generic Name Dose Route Start Last Admin Trade Name Freq PRN Reason Stop Dose Admin Ketorolac Tromethamine 60 mg 09/09/18 19:14 09/09/18 19:23 Toradol Injection - IM 09/09/18 19:15 60 mg ONCE ONE Administration Medical Decision Making - Medical Decision Making 09/09/18 20:33 Received signout from nurse practitioner Chriss. Briefly this is a 48-year-old woman with history of kidney stones, LEANNE, cholecystectomy, gastric surgery who presents emergency departments with flank pain. Patient's laboratory testing is unremarkable is currently pending a CAT scan to evaluate for kidney stones. CAT scan as read by Dr. Dos Santos: No definite CT findings of acute pathology identified. There is no evidence of current urolithiasis or obstructive uropathy. Patient is currently pain-free. I will discharge the patient home to follow-up with urology. I discussed the physical exam findings, ancillary test results and final diagnoses with the patient. I answered all of the patient's questions. The patient was satisfied with the care received and felt comfortable with the discharge plan and treatment plan. The patient will call their primary care physician within 24 hours to arrange follow-up and will return to the Emergency Department with any new, persistent or worsening symptoms. *DC/Admit/Observation/Transfer Diagnosis at time of Disposition: Left flank discomfort - Discharge Dispostion Disposition: HOME Condition at time of disposition: Stable Decision to Admit order: No - Referrals Referrals: Nina Bolton MD [Primary Care Provider] - Brown Turcios MD [Staff Physician] - - Patient Instructions Additional Instructions: drink pleanty of water avoid iced tea, soda follow with the urologist listed below return if worse take extra strength tylenol as directed for pain Return to ER for any worsening symptoms - Post Discharge Activity
== END 2018-09-09 20:41 | disposition home or self-care (01) ==
LOC: JERFT 17:54
PROC: 3E0233Z Introduction of Anti-inflammatory into Muscle, Percutaneous Approach (ICD-10-PCS; principal; 2018-09-09)
DX: R10.32 Left lower quadrant pain (principal); I10 Essential (primary) hypertension; J45.909 Unspecified asthma, uncomplicated; Z87.442 Personal history of urinary calculi
CPT/HCPCS: 74176; 81003; 84703; 87086; 96372; 99281-25

== ENCOUNTER 2019-07-04 08:41 | Emergency (ER) | payer OTHER | END 2019-07-04 11:12 | disposition home or self-care (01) | LOC: JER 08:41 ==

== ENCOUNTER → 2019-07-18 | Outpatient (CLI) | payer OTHER | LOC: YHH 15:21 ==

== ENCOUNTER 2019-11-22 01:07 | Observation (INO) | payer OTHER ==
[2019-11-22] MEDS ORDERED: ACETAMINOPHEN 500 MG TABLET (FP) PO ONE (01:19)
[2019-11-22] MEDS ORDERED: ACETAMINOPHEN 325 MG TABLET (FP) ONE (01:25)
--- NOTE | 2019-11-22 01:27 | PDOC ---
Attending Attestation - Resident Resident Name: Doug Underwood - ED Attending Attestation I have performed the following: I have examined & evaluated the patient, The case was reviewed & discussed with the resident, I agree w/resident's findings & plan - HPI HPI: 11/22/19 01:25 49 yo F with hx of anemia, asthma, hypertension (on amlodipine, diovan), kidney stones and shrimp allergy presenting with acute onset of chest pressure tonight while attending [employer]. En route with EMS (arrived at 0034), they noted slurred speech, right facial droop? En route, BP 200/120; pt received nitro SL and ASA 325mg x1. No h/o CVA/TIA, IA, PE/DVT - Physicial Exam PE: 11/22/19 01:25 Agree with the resident's HPI and PE as documented in the electronic medical record. Alert, oriented appropriately, NAD, well appearing, EOMI, PERRL, nl conjunctiva , anicteric; neck supple. lungs clear, RRR, no murmur. abdomen soft nontender. no rebound, guarding. Back nontender. SOLOMON x4, no focal neuro deficits. CN II- XII grossly intact. No facial droop. No drift. Strength prox and distally 5/5 throughout. Sensation grossly intact to light touch. SOLOMON x4. Speech clear. No peripheral edema. normal color for ethnicity, WWP. - Medical Decision Making 11/22/19 01:25 Vital Signs Temp Pulse Resp BP Pulse Ox 97.7 F 65 16 159/105 H 100 11/22/19 01:20 11/22/19 01:20 11/22/19 01:20 11/22/19 01:20 11/22/19 01:20 DDx chest pain: ACS, coronary vasospasm, NSTEMI, arrhythmia, unstable angina, PE , dissection, PUD, esophageal spasm, GERD, gastritis, costochondritis, pneumonia , pleurisy, pericarditis/myocarditis. dehydration, electrolyte/metabolic derangements. Historically not abrupt in onset, tearing or ripping, pulses symmetric, no evidence of aortic dissection. EKG normal sinus rhythm, no interval abnormalities, narrow QRS, ST and T wave segments and morphology normal. Nonspecific T wave abnormalities, unchanged from prior Chest pain HEART score 2 which denotes Low risk and probability for ACS, less than 1% risk for MACE at 4-6 wks already receive full dose ASA USER ACCEPTANCE TESTER with ems also nitro for the chest pain, which has since resolved hypertension noted, 159/105 noted, much improved from prior hypertension in the field. 11/22/19 01:26 initial trop is negative, ECG is sinus rhythm, no e/o ischemia. will need 2nd trop, EKG, trend trops, dimer is negative low suspicion for PE/dissection. 11/22/19 05:20 - chest pain returned. ECG is unchanged. however trop increased to 0.10 already received ASA. will give nitro for the chest pain. will need tele, observation, serial ekg/trop, chest pain eval, r/o ACS. 11/22/19 05:21 11/22/19 05:25 Heart Score/ECG Review - History History: Slightly suspicious - Electrocardiogram EKG: Normal - Age Age: 45-65 - Risk Factors Risk Factors Heart Score: Yes Hx Hypertension, Yes Hx Obesity Based on the list above the patient has:: 1-2 risk factors - Troponin Troponin: </= normal limit - Score Heart Score - Total: 2 #1 ECG reviewed & interpreted by me at: 01:15 General ECG Interpretation: Sinus Rhythm, Normal Rate, Normal Intervals Compared to previous ECG there are: Previous ECG unavail 11/22/19 01:26 EKG normal sinus rhythm 67 bpm, no interval abnormalities, narrow QRS, ST and T wave segments and morphology normal. #2 ECG reviewed & interpreted by me at: 04:35 General ECG Interpretation: Sinus Rhythm, Normal Rate, Normal Intervals 11/22/19 05:25 nsr at 57 bpm, TWI in III only. left axis deviation, narrow qrs and normal intervals.
[2019-11-22 01:40] LABS: HEMOGLOBIN 11.8 GM/dL (10.7-15.3); RBC 5.07 M/mm3 (3.60-5.2); WHITE BLOOD COUNT 6.5 K/mm3 (4.0-10.0)
[2019-11-22 01:41] LABS: BASO % 1.4 % (0-2.0); EOS % 0.5 % (0-4.5); LYMPH % 59.6 % (8-40); MCH 23.2 pg (25.7-33.7); MCHC 31.9 g/dl (32.0-36.0); MEAN CELL VOLUME 72.9 fl (80-96); MEAN PLT VOLUME 8.5 fl (7.5-11.1); MONO % 4.1 % (3.8-10.2); NEUT % 34.4 % (42.8-82.8); PLATELET COUNT 303 K/MM3 (134-434); RDW 14.8 % (11.6-15.6)
[2019-11-22 01:55] LABS: INR 0.93 (0.83-1.09)
[2019-11-22 01:58] LABS: ACTIVATED PTT 34.5 SECONDS (25.2-36.5)
[2019-11-22 02:02] LABS: ALBUMIN 3.8 g/dl (3.4-5.0); BILIRUBIN,TOTAL 0.3 mg/dL (0.2-1); BLOOD UREA NITROGEN 13.4 mg/dL (7-18); CALCIUM 9.6 mg/dL (8.5-10.1); CREATININE 0.9 mg/dL (0.55-1.3); POTASSIUM 3.5 mmol/L (3.5-5.1); TOT PROT 7.8 g/dl (6.4-8.2)
--- NOTE | 2019-11-22 02:15 | PDOC ---
History of Present Illness - General History Source: Patient Exam Limitations: No Limitations - History of Present Illness Initial Comments: 11/22/19 02:10 Patient is a 49F with history of HTN here today complaining of chest pain that started two hours prior to arrival. Patient endorses associated shortness of breath. Denies fevers, chills, nausea, vomiting. Pain is worsened with arm movement. Pain has since resolved. Family reports concerns about a change to speech and facial droop. Patient denies. Denies abdominal pain, cough. Denies leg swelling, history of blood clots. <Doug Underwood - Last Filed: 11/22/19 05:37> <Nadia Perea - Last Filed: 11/22/19 07:22> - General Chief Complaint: Chest Pain Stated Complaint: CHEST PAIN,SHORTNESS OF BREATH Time Seen by Provider: 11/22/19 01:18 NIH Stroke Scale - Last Known Well Date/Time & Onset Date Last Known Well: 11/22/19 Time Last Known Well: 00:00 - Initial Evaluation Level of consciousness: Alert Ask patient the month and their age: Answers both correctly Ask patient to open & close eyes; make fist and let go: Obeys both correctly Best gaze (horizontal eye movement): Normal Visual field testing: No visual field loss Facial paresis (Show teeth/raise eyebrows/close eyes tight): Normal symmetrical movement Motor Function: Left Arm: Normal Motor Function: Right Arm: Normal (extends arm 90 (or 45) degrees for 10 seconds without drift Motor Function: Left Leg: Normal (extends leg 30 degrees for 5 seconds without drift) Motor Function: Right Leg: Normal (extends leg 30 degrees for 5 seconds without drift) Limb Ataxia: No ataxia <Doug Underwood - Last Filed: 11/22/19 05:37> Past History - Past Medical History Asthma: Yes COPD: No Disorders: Yes (renal stones) HTN: Yes - Surgical History Abdominal Surgery: Yes (GASTRIC SLEEVE) Cholecystectomy: Yes - Immunization History Immunization Up to Date: Yes - Psycho Social/Smoking Cessation Hx Smoking Status: No Smoking History: Never smoked Have you smoked in the past 12 months: No Number of Cigarettes Smoked Daily: 0 Hx Alcohol Use: No Drug/Substance Use Hx: No Substance Use Type: None <Doug Underwood - Last Filed: 11/22/19 05:37> <Nadia Pereagee - Last Filed: 11/22/19 07:22> - Past Medical History Allergies/Adverse Reactions: Allergies Allergy/AdvReac Type Severity Reaction Status Date / Time shellfish derived Allergy Verified 07/04/19 08:55 Home Medications: Ambulatory Orders Valsartan [Diovan] 40 mg PO DAILY 02/22/16 Amlodipine Besylate [Norvasc -] 5 mg PO DAILY #14 tablet 02/23/16 Ondansetron HCl [Zofran] 4 mg PO BID PRN #10 tablet 05/17/17 Tramadol HCl 50 mg PO TID PRN #12 tablet MDD 3 05/17/17 Naproxen Sodium [Naproxen Sodium ER] 250 mg PO BID PRN #10 tablet.er 05/20/17 Tamsulosin HCl [Flomax -] 0.4 mg PO DAILY #15 capsule 05/20/17 Diphenhydramine [Benadryl -] 50 mg PO DAILY 7 Days #21 capsule 07/04/19 Epinephrine [Epipen] 0.3 mg IJ PRN #1 auto.injct 07/04/19 Tetrahydrozoline HCl/Zinc Sulf [Visine Allergy Relief Drop] 30 ml OP PRN #1 drops 07/04/19 Review of Systems - Review of Systems Able to Perform ROS?: Yes Comments:: 11/22/19 02:13 GENERAL/CONSTITUTIONAL: No fever or chills. No weakness. HEAD, EYES, EARS, NOSE AND THROAT: No change in vision. No sore throat. CARDIOVASCULAR: +chest pain +shortness of breath RESPIRATORY: No cough, wheezing, or hemoptysis. GASTROINTESTINAL: No nausea, vomiting, diarrhea or constipation. GENITOURINARY: No dysuria, frequency, or change in urination. MUSCULOSKELETAL: No joint or muscle swelling or pain. No neck or back pain. SKIN: No rash NEUROLOGIC: No headache, vertigo, loss of consciousness, or change in strength/ sensation. ENDOCRINE: No increased thirst. No abnormal weight change HEMATOLOGIC/LYMPHATIC: No anemia, easy bleeding, or history of blood clots. ALLERGIC/IMMUNOLOGIC: No hives or skin allergy. <Doug Underwood - Last Filed: 11/22/19 05:37> *Physical Exam - Physical Exam 11/22/19 02:14 GENERAL: Awake, alert, and fully oriented, in no acute distress HEAD: No signs of trauma, normocephalic, atraumatic EYES: PERRLA, EOMI, sclera anicteric, conjunctiva clear ENT: Auricles normal inspection, hearing grossly normal, nares patent, oropharynx clear without exudates. Moist mucosa NECK: Normal ROM, supple, no lymphadenopathy, JVD, or masses LUNGS: No distress, speaks full sentences, clear to auscultation bilaterally HEART: Regular rate and rhythm, normal S1 and S2, no murmurs, rubs or gallops, peripheral pulses normal and equal bilaterally. ABDOMEN: Soft, nontender, normoactive bowel sounds. No guarding, no rebound. No masses EXTREMITIES: Normal inspection, Normal range of motion, no edema. No clubbing or cyanosis. NEUROLOGICAL: Cranial nerves II through XII grossly intact. Normal speech, normal gait, no focal sensorimotor deficits. NIHSS 0 SKIN: Warm, Dry, normal turgor, no rashes or lesions noted. <Doug Underwood - Last Filed: 11/22/19 05:37> - Vital Signs Last Vital Signs Temp Pulse Resp BP Pulse Ox 97.7 F 65 16 159/105 H 100 11/22/19 01:20 11/22/19 01:20 11/22/19 01:20 11/22/19 01:20 11/22/19 01:20 <Nadia Perea - Last Filed: 11/22/19 07:22> Heart Score/ECG Review - History History: Slightly suspicious - Electrocardiogram EKG: Normal - Age Age: 45-65 - Risk Factors Risk Factors Heart Score: Yes Hx Hypertension Based on the list above the patient has:: 1-2 risk factors - Troponin Troponin: </= normal limit - Score Heart Score - Total: 2 <Doug Underwood - Last Filed: 11/22/19 05:37> ED Treatment Course - LABORATORY CBC & Chemistry Diagram: 11/22/19 01:25 11/22/19 01:25 - ADDITIONAL ORDERS Additional order review: Laboratory Results 11/22/19 11/22/19 11/22/19 01:25 01:25 01:25 PT with INR 11.00 INR 0.93 PTT (Actin FS) 34.5 Sodium 143 Potassium 3.5 Chloride 109 H Carbon Dioxide 25 Anion Gap 9 BUN 13.4 Creatinine 0.9 Est GFR (CKD-EPI)AfAm 87.63 Est GFR (CKD-EPI)NonAf 75.61 Random Glucose 107 H Calcium 9.6 Total Bilirubin 0.3 AST 16 ALT 17 Alkaline Phosphatase 110 Creatine Kinase 182 Troponin I < 0.02 Total Protein 7.8 Albumin 3.8 11/22/19 01:25 RBC 5.07 MCV 72.9 L MCHC 31.9 L RDW 14.8 MPV 8.5 Neutrophils % 34.4 L Lymphocytes % 59.6 H Monocytes % 4.1 Eosinophils % 0.5 Basophils % 1.4 - RADIOLOGY Radiology Studies Ordered: Category Date Time Status CHEST X-RAY PORTABLE* [RAD] Stat Radiology 11/22/19 01:18 Taken - Medications Given in the ED: ED Medications Discontinued Medications Generic Name Dose Route Start Last Admin Trade Name Freq PRN Reason Stop Dose Admin Acetaminophen 975 mg 11/22/19 01:19 11/22/19 01:43 Tylenol - PO 11/22/19 01:20 975 mg ONCE ONE Administration <Doug Underwood - Last Filed: 11/22/19 05:37> - LABORATORY CBC & Chemistry Diagram: 11/22/19 01:25 11/22/19 01:25 - ADDITIONAL ORDERS Additional order review: Laboratory Results 11/22/19 11/22/19 11/22/19 04:30 01:25 01:25 PT with INR INR PTT (Actin FS) D-Dimer 266 Sodium Potassium Chloride Carbon Dioxide Anion Gap BUN Creatinine Est GFR (CKD-EPI)AfAm Est GFR (CKD-EPI)NonAf Random Glucose Calcium Magnesium 2.1 Total Bilirubin AST ALT Alkaline Phosphatase Creatine Kinase Creatine Kinase Index CK-MB (CK-2) Troponin I 0.10 H Total Protein Albumin 11/22/19 11/22/19 11/22/19 01:25 01:25 01:25 PT with INR 11.00 INR 0.93 PTT (Actin FS) 34.5 D-Dimer Sodium 143 Potassium 3.5 Chloride 109 H Carbon Dioxide 25 Anion Gap 9 BUN 13.4 Creatinine 0.9 Est GFR (CKD-EPI)AfAm 87.63 Est GFR (CKD-EPI)NonAf 75.61 Random Glucose 107 H Calcium 9.6 Magnesium Total Bilirubin 0.3 AST 16 ALT 17 Alkaline Phosphatase 110 Creatine Kinase 182 Creatine Kinase Index 0.6 CK-MB (CK-2) 1.1 Troponin I < 0.02 Total Protein 7.8 Albumin 3.8 11/22/19 01:25 RBC 5.07 MCV 72.9 L MCHC 31.9 L RDW 14.8 MPV 8.5 Neutrophils % 34.4 L Lymphocytes % 59.6 H Monocytes % 4.1 Eosinophils % 0.5 Basophils % 1.4 - Medications Given in the ED: ED Medications Discontinued Medications Generic Name Dose Route Start Last Admin Trade Name Christen PRN Reason Stop Dose Admin Acetaminophen 975 mg 11/22/19 01:19 11/22/19 01:43 Tylenol - PO 11/22/19 01:20 975 mg ONCE ONE Administration Nitroglycerin 1 inch 11/22/19 05:20 11/22/19 05:37 Nitro-Bid 2% Paste - TD 11/22/19 05:21 1 inch ONCE ONE Administration <Nadia Perea - Last Filed: 11/22/19 07:22> Medical Decision Making - Medical Decision Making 11/22/19 02:15 Patient is a 49F with history of HTN here today with chest pain. Symptoms have no resolved. Given nitro in the field and 325mg aspirin. Currently asymptomatic. HEART score 1. Perc negative for PE. Low risk for dissection, d-dimer negative. EKG shows NSR with rate of 67. No st elevations/depressions. Normal axis. Normal intervals. CBC normal Trop negative CMP reassuring. CXR shows no acute cardiopulmonary process. Will do HEART pathway to rule out and discharge. No visible signs of facial droop. Low risk ABCD2 score. Will discharge with primary care follow up if second trop/ekg normal. 11/22/19 04:35 EKG shows sinus bradycardia with rate of 57. FL interval 208. No st elevations/ depressions. Normal axis. Normal QTc. No significant t waves. 11/22/19 05:21 Trop 0.10. Patient states that pain has started again. Will treat with nitropaste, has already gotten aspirin. Will admit. PCP Dr Tiwari. <Doug Underwood - Last Filed: 11/22/19 05:37> Discharge - Discharge Information Problems reviewed: Yes - Admission Yes <Doug Underwood - Last Filed: 11/22/19 05:37> - Admission Yes <Nadia Perea - Last Filed: 11/22/19 07:22> - Discharge Information Clinical Impression/Diagnosis: Non-ST elevation HI (NSTEMI) Chest pain Qualifiers: Chest pain type: unspecified Qualified Code(s): R07.9 - Chest pain, unspecified Condition: Stable
[2019-11-22 02:22] VITALS: BMI 37.8
[2019-11-22] MEDS ORDERED: NITROGLYCERIN 2% OINTMENT - 1GM PACKET TD ONE ×2 (05:20→05:24)
[2019-11-22] MEDS ORDERED: MORPHINE SULFATE 2 MG/ML VIAL IVPUSH PRN (06:35)
--- NOTE | 2019-11-22 06:52 | HP ---
<Nereida Harris - Last Filed: 11/22/19 06:52> CHIEF COMPLAINT:chest pain PCP: HISTORY OF PRESENT ILLNESS: 49 yo F PMH of Asthma, HTN presents to ED for chest pain. pt states the pain is sharp left sided pain. pt states that pain began and exacerbated when she raised her arm. she states the pain did not radiate anywhere. she states the pain lasted until she arrived at the hospital 2 hours later. she states that the pain improved and then she just has chest pressure which is reproducible to palpation. chest pain came back after she got up to walk to the bathroom. denies recent illness, recent travel denies f/c/n/v/d ER course was notable for: (1)aspirin 325 (2)trop 0.02--> 0.1 (3)EKG: NSR , no ST changes x 2 Recent Travel:denies PAST MEDICAL HISTORY: Asthma, HTN PAST SURGICAL HISTORY: hysterectomy, cholecystecomy , gastric sleeve Social History: Smoking:denies Alcohol:denies Drugs: denies Allergies shellfish derived Allergy (Verified 07/04/19 08:55) HOME MEDICATIONS: Home Medications Medication Instructions Recorded Valsartan [Diovan] 40 mg PO DAILY 02/22/16 Amlodipine Besylate [Norvasc -] 5 mg PO DAILY #14 tablet 02/23/16 Ondansetron HCl [Zofran] 4 mg PO BID PRN #10 tablet 05/17/17 Tramadol HCl 50 mg PO TID PRN #12 tablet MDD 3 05/17/17 Naproxen Sodium [Naproxen Sodium 250 mg PO BID PRN #10 tablet.er 05/20/17 ER] Tamsulosin HCl [Flomax -] 0.4 mg PO DAILY #15 capsule 05/20/17 Diphenhydramine [Benadryl -] 50 mg PO DAILY 7 Days #21 capsule 07/04/19 Epinephrine [Epipen] 0.3 mg IJ PRN #1 auto.injct 07/04/19 Tetrahydrozoline HCl/Zinc Sulf 30 ml OP PRN #1 drops 07/04/19 [Visine Allergy Relief Drop] REVIEW OF SYSTEMS CONSTITUTIONAL: Absent: fever, chills, diaphoresis, generalized weakness, malaise, loss of appetite, weight change HEENT: Absent: rhinorrhea, nasal congestion, throat pain, throat swelling, difficulty swallowing, mouth swelling, ear pain, eye pain, visual changes CARDIOVASCULAR: Present: chest pain Absent:syncope, palpitations, irregular heart rate, lightheadedness, peripheral edema RESPIRATORY: Absent: cough, shortness of breath, dyspnea with exertion, orthopnea, wheezing, stridor, hemoptysis GASTROINTESTINAL: Absent: abdominal pain, abdominal distension, nausea, vomiting, diarrhea, constipation, melena, hematochezia GENITOURINARY: Absent: dysuria, frequency, urgency, hesitancy, hematuria, flank pain, genital pain MUSCULOSKELETAL: Absent: myalgia, arthralgia, joint swelling, back pain, neck pain SKIN: Absent: rash, itching, pallor HEMATOLOGIC/IMMUNOLOGIC: Absent: easy bleeding, easy bruising, lymphadenopathy, frequent infections ENDOCRINE: Absent: unexplained weight gain, unexplained weight loss, heat intolerance, cold intolerance NEUROLOGIC: Absent: headache, focal weakness or paresthesias, dizziness, unsteady gait, seizure, mental status changes, bladder or bowel incontinence PSYCHIATRIC: Absent: anxiety, depression, suicidal or homicidal ideation, hallucinations. PHYSICAL EXAMINATION Vital Signs - 24 hr 11/22/19 01:20 Temperature 97.7 F Pulse Rate 65 Respiratory 16 Rate Blood Pressure 159/105 H O2 Sat by Pulse 100 Oximetry (%) GENERAL: Awake, alert, and fully oriented, in no acute distress. HEAD: Normal with no signs of trauma. EYES: Pupils equal, round and reactive to light, extraocular movements intact, sclera anicteric, conjunctiva clear. EARS, NOSE, THROAT: nares patent, oropharynx clear without exudates. Moist mucous membranes. NECK: Normal range of motion, supple without lymphadenopathy, JVD, LUNGS: Breath sounds equal, clear to auscultation bilaterally. No wheezes, and no crackles. No accessory muscle use. HEART: Regular rate and rhythm, normal S1 and S2 without murmur, rub or gallop. tender to palpation over left chest ABDOMEN: Soft, nontender, not distended, normoactive bowel sounds, no guarding, no rebound, no masses. MUSCULOSKELETAL: Normal range of motion at all joints. No bony deformities or tenderness. No CVA tenderness. UPPER EXTREMITIES: 2+ pulses, warm, well-perfused. No cyanosis. No clubbing. No peripheral edema. LOWER EXTREMITIES: 2+ pulses, warm, well-perfused. No calf tenderness. No peripheral edema. NEUROLOGICAL: Cranial nerves II-XII intact. Normal speech. PSYCHIATRIC: Cooperative. Good eye contact. Appropriate mood and affect. SKIN: Warm, dry, normal turgor, no rashes or lesions noted, normal capillary refill. Laboratory Last Values WBC 6.5 K/mm3 (4.0-10.0) 11/22/19 01:25 RBC 5.07 M/mm3 (3.60-5.2) 11/22/19 01:25 Hgb 11.8 GM/dL (10.7-15.3) 11/22/19 01:25 Hct 37.0 % (32.4-45.2) 11/22/19 01:25 MCV 72.9 fl (80-96) L 11/22/19 01:25 MCH 23.2 pg (25.7-33.7) L 11/22/19 01:25 MCHC 31.9 g/dl (32.0-36.0) L 11/22/19 01:25 RDW 14.8 % (11.6-15.6) 11/22/19 01:25 Plt Count 303 K/MM3 (134-434) D 11/22/19 01:25 MPV 8.5 fl (7.5-11.1) 11/22/19 01:25 Absolute Neuts (auto) 2.2 K/mm3 (1.5-8.0) 11/22/19 01:25 Neutrophils % 34.4 % (42.8-82.8) L 11/22/19 01:25 Lymphocytes % 59.6 % (8-40) H 11/22/19 01:25 Monocytes % 4.1 % (3.8-10.2) 11/22/19 01:25 Eosinophils % 0.5 % (0-4.5) 11/22/19 01:25 Basophils % 1.4 % (0-2.0) 11/22/19 01:25 Nucleated RBC % 0 % (0-0) 11/22/19 01:25 PT with INR 11.00 SEC (9.7-13.0) 11/22/19 01:25 INR 0.93 (0.83-1.09) 11/22/19 01:25 PTT (Actin FS) 34.5 SECONDS (25.2-36.5) 11/22/19 01:25 D-Dimer 266 ng/ml (0-500) 11/22/19 01:25 Sodium 143 mmol/L (136-145) 11/22/19 01:25 Potassium 3.5 mmol/L (3.5-5.1) 11/22/19 01:25 Chloride 109 mmol/L (98-107) H 11/22/19 01:25 Carbon Dioxide 25 mmol/L (21-32) 11/22/19 01:25 Anion Gap 9 MMOL/L (8-16) 11/22/19 01:25 BUN 13.4 mg/dL (7-18) 11/22/19 01:25 Creatinine 0.9 mg/dL (0.55-1.3) 11/22/19 01:25 Est GFR (CKD-EPI)AfAm 87.63 11/22/19 01:25 Est GFR (CKD-EPI)NonAf 75.61 11/22/19 01:25 Random Glucose 107 mg/dL (74-106) H 11/22/19 01:25 Calcium 9.6 mg/dL (8.5-10.1) 11/22/19 01:25 Magnesium 2.1 mg/dL (1.8-2.4) 11/22/19 01:25 Total Bilirubin 0.3 mg/dL (0.2-1) 11/22/19 01:25 AST 16 U/L (15-37) 11/22/19 01:25 ALT 17 U/L (13-61) 11/22/19 01:25 Alkaline Phosphatase 110 U/L (45-117) 11/22/19 01:25 Creatine Kinase 182 U/L (26-192) 11/22/19 01:25 Creatine Kinase Index 0.6 % (0.0-5.0) 11/22/19 01:25 CK-MB (CK-2) 1.1 ng/mL (0.5-3.6) 11/22/19 01:25 Troponin I 0.10 ng/ml (0.00-0.05) H 11/22/19 04:30 Total Protein 7.8 g/dl (6.4-8.2) 11/22/19 01:25 Albumin 3.8 g/dl (3.4-5.0) 11/22/19 01:25 ASSESSMENT/PLAN: 49 yo F PMH of Asthma, HTN presents to ED for chest pain. pt states the pain is sharp left sided pain . pt admitted to tele obs for r/o ACS R/O ACS - Aspirin 325 given to pt en route to ED - s/p nitro - EKG reviewed, CXR reviewed - cardiac monitoring, trend trops to peak - Echo -cardiac recs appreciated- Dr. Dominguez -morphine 1 mg for pain control -fasting lipids, A1C HTN - metoprolol 25 BID - confirm med rec F/E/N -monitor lytes -NPO for possible cardiac intervention Asthma Hx of asthma well controlled reconcile home meds and consider prn DVT ppx: Hep SQ Dispo: tele obs Visit type - Emergency Visit Emergency Visit: Yes ED Registration Date: 11/22/19 Care time: The patient presented to the Emergency Department on the above date and was hospitalized for further evaluation of their emergent condition. - New Patient This patient is new to me today: Yes Date on this admission: 11/22/19 - Critical Care Critical Care patient: No ATTENDING PHYSICIAN STATEMENT I saw and evaluated the patient. I reviewed the resident's note and discussed the case with the resident. I agree with the resident's findings and plan as documented. SUBJECTIVE: OBJECTIVE: ASSESSMENT AND PLAN: <Og Rico - Last Filed: 11/22/19 07:11> CHIEF COMPLAINT: PCP: HISTORY OF PRESENT ILLNESS: ER course was notable for: (1) (2) (3) Recent Travel: PAST MEDICAL HISTORY: PAST SURGICAL HISTORY: Social History: Smoking: Alcohol: Drugs: Allergies shellfish derived Allergy (Verified 07/04/19 08:55) HOME MEDICATIONS: Home Medications Medication Instructions Recorded Valsartan [Diovan] 40 mg PO DAILY 02/22/16 Amlodipine Besylate [Norvasc -] 5 mg PO DAILY #14 tablet 02/23/16 Ondansetron HCl [Zofran] 4 mg PO BID PRN #10 tablet 05/17/17 Tramadol HCl 50 mg PO TID PRN #12 tablet MDD 3 05/17/17 Naproxen Sodium [Naproxen Sodium 250 mg PO BID PRN #10 tablet.er 05/20/17 ER] Tamsulosin HCl [Flomax -] 0.4 mg PO DAILY #15 capsule 05/20/17 Diphenhydramine [Benadryl -] 50 mg PO DAILY 7 Days #21 capsule 07/04/19 Epinephrine [Epipen] 0.3 mg IJ PRN #1 auto.injct 07/04/19 Tetrahydrozoline HCl/Zinc Sulf 30 ml OP PRN #1 drops 07/04/19 [Visine Allergy Relief Drop] REVIEW OF SYSTEMS CONSTITUTIONAL: Absent: fever, chills, diaphoresis, generalized weakness, malaise, loss of appetite, weight change HEENT: Absent: rhinorrhea, nasal congestion, throat pain, throat swelling, difficulty swallowing, mouth swelling, ear pain, eye pain, visual changes CARDIOVASCULAR: Absent: chest pain, syncope, palpitations, irregular heart rate, lightheadedness , peripheral edema RESPIRATORY: Absent: cough, shortness of breath, dyspnea with exertion, orthopnea, wheezing, stridor, hemoptysis GASTROINTESTINAL: Absent: abdominal pain, abdominal distension, nausea, vomiting, diarrhea, constipation, melena, hematochezia GENITOURINARY: Absent: dysuria, frequency, urgency, hesitancy, hematuria, flank pain, genital pain MUSCULOSKELETAL: Absent: myalgia, arthralgia, joint swelling, back pain, neck pain SKIN: Absent: rash, itching, pallor HEMATOLOGIC/IMMUNOLOGIC: Absent: easy bleeding, easy bruising, lymphadenopathy, frequent infections ENDOCRINE: Absent: unexplained weight gain, unexplained weight loss, heat intolerance, cold intolerance NEUROLOGIC: Absent: headache, focal weakness or paresthesias, dizziness, unsteady gait, seizure, mental status changes, bladder or bowel incontinence PSYCHIATRIC: Absent: anxiety, depression, suicidal or homicidal ideation, hallucinations. PHYSICAL EXAMINATION Vital Signs - 24 hr 11/22/19 01:20 Temperature 97.7 F Pulse Rate 65 Respiratory 16 Rate Blood Pressure 159/105 H O2 Sat by Pulse 100 Oximetry (%) GENERAL: Awake, alert, and fully oriented, in no acute distress. HEAD: Normal with no signs of trauma. EYES: Pupils equal, round and reactive to light, extraocular movements intact, sclera anicteric, conjunctiva clear. No lid lag. EARS, NOSE, THROAT: Ears normal, nares patent, oropharynx clear without exudates. Moist mucous membranes. NECK: Normal range of motion, supple without lymphadenopathy, JVD, or masses. LUNGS: Breath sounds equal, clear to auscultation bilaterally. No wheezes, and no crackles. No accessory muscle use. HEART: Regular rate and rhythm, normal S1 and S2 without murmur, rub or gallop. ABDOMEN: Soft, nontender, not distended, normoactive bowel sounds, no guarding, no rebound, no masses. No hepatomegaly or splenomegaly. MUSCULOSKELETAL: Normal range of motion at all joints. No bony deformities or tenderness. No CVA tenderness. UPPER EXTREMITIES: 2+ pulses, warm, well-perfused. No cyanosis. No clubbing. No peripheral edema. LOWER EXTREMITIES: 2+ pulses, warm, well-perfused. No calf tenderness. No peripheral edema. NEUROLOGICAL: Cranial nerves II-XII intact. Normal speech. Normal gait. PSYCHIATRIC: Cooperative. Good eye contact. Appropriate mood and affect. SKIN: Warm, dry, normal turgor, no rashes or lesions noted, normal capillary refill. Laboratory Results - last 24 hr 11/22/19 11/22/19 11/22/19 01:25 01:25 01:25 WBC 6.5 RBC 5.07 Hgb 11.8 Hct 37.0 MCV 72.9 L MCH 23.2 L MCHC 31.9 L RDW 14.8 Plt Count 303 D MPV 8.5 Absolute Neuts (auto) 2.2 Neutrophils % 34.4 L Lymphocytes % 59.6 H Monocytes % 4.1 Eosinophils % 0.5 Basophils % 1.4 Nucleated RBC % 0 PT with INR 11.00 INR 0.93 PTT (Actin FS) 34.5 D-Dimer Sodium Potassium Chloride Carbon Dioxide Anion Gap BUN Creatinine Est GFR (CKD-EPI)AfAm Est GFR (CKD-EPI)NonAf Random Glucose Calcium Magnesium Total Bilirubin AST ALT Alkaline Phosphatase Creatine Kinase 182 Creatine Kinase Index 0.6 CK-MB (CK-2) 1.1 Troponin I < 0.02 Total Protein Albumin 11/22/19 11/22/19 11/22/19 01:25 01:25 01:25 WBC RBC Hgb Hct MCV MCH MCHC RDW Plt Count MPV Absolute Neuts (auto) Neutrophils % Lymphocytes % Monocytes % Eosinophils % Basophils % Nucleated RBC % PT with INR INR PTT (Actin FS) D-Dimer 266 Sodium 143 Potassium 3.5 Chloride 109 H Carbon Dioxide 25 Anion Gap 9 BUN 13.4 Creatinine 0.9 Est GFR (CKD-EPI)AfAm 87.63 Est GFR (CKD-EPI)NonAf 75.61 Random Glucose 107 H Calcium 9.6 Magnesium 2.1 Total Bilirubin 0.3 AST 16 ALT 17 Alkaline Phosphatase 110 Creatine Kinase Creatine Kinase Index CK-MB (CK-2) Troponin I Total Protein 7.8 Albumin 3.8 11/22/19 04:30 WBC RBC Hgb Hct MCV MCH MCHC RDW Plt Count MPV Absolute Neuts (auto) Neutrophils % Lymphocytes % Monocytes % Eosinophils % Basophils % Nucleated RBC % PT with INR INR PTT (Actin FS) D-Dimer Sodium Potassium Chloride Carbon Dioxide Anion Gap BUN Creatinine Est GFR (CKD-EPI)AfAm Est GFR (CKD-EPI)NonAf Random Glucose Calcium Magnesium Total Bilirubin AST ALT Alkaline Phosphatase Creatine Kinase Creatine Kinase Index CK-MB (CK-2) Troponin I 0.10 H Total Protein Albumin ASSESSMENT/PLAN: ATTENDING PHYSICIAN STATEMENT I saw and evaluated the patient. I reviewed the resident's note and discussed the case with the resident. I agree with the resident's findings and plan as documented.
[2019-11-22 08:19] LABS: INR 1.01 (0.83-1.09); PROTHROMBIN TIME (PATIENT) 11.9 SEC (9.7-13.0)
[2019-11-22 08:28] LABS: HEMATOCRIT 34.9 % (32.4-45.2); HEMOGLOBIN 11.1 GM/dL (10.7-15.3); MCH 23.5 pg (25.7-33.7); MCHC 31.8 g/dl (32.0-36.0); MEAN CELL VOLUME 73.7 fl (80-96); MEAN PLT VOLUME 8.8 fl (7.5-11.1); PLATELET COUNT 287 K/MM3 (134-434); RBC 4.73 M/mm3 (3.60-5.2); RDW 14.9 % (11.6-15.6); WHITE BLOOD COUNT 5.7 K/mm3 (4.0-10.0)
[2019-11-22 08:37] LABS: ALBUMIN 3.5 g/dl (3.4-5.0); BILIRUBIN,TOTAL 0.5 mg/dL (0.2-1); BLOOD UREA NITROGEN 10.2 mg/dL (7-18); CALCIUM 9.2 mg/dL (8.5-10.1); CREATININE 0.8 mg/dL (0.55-1.3); MAGNESIUM 2.2 mg/dL (1.8-2.4); PHOSPHOROUS 3.5 mg/dL (2.5-4.9); POTASSIUM 3.6 mmol/L (3.5-5.1)
[2019-11-22] MEDS ORDERED: ASPIRIN COATED 81 MG TABLET.EC PO SCH (10:00)
[2019-11-22] MEDS ORDERED: metoPROLOL SUCCINATE 25 MG TAB.SR.24H (FP) PO SCH (10:00)
[2019-11-22] MEDS: HEPARIN NA (PORCINE) 5,000 UNITS/ML 1ML VIAL SQ SCH ×2 (10:33→13:41)
[2019-11-22 11:12] LABS: ANISOCYTOSIS 1+; MACROCYTOSIS 0; PLATELET ESTIMATE NORMAL
--- NOTE | 2019-11-22 12:47 | PN ---
Progress Note (short form) - Note Progress Note: Coverage for Dr. Regulo Khan Chief Complaint: Events noted, notes reviewed, evaluation of chest discomfort which is exacerbated by arm movements/respiration, chest wall tenderness- borderline abnormal troponin I level/nonspecific finding History of Present Illness: Seen and examined on telemetry. Full consult dictated - Current Medication List Current Medications Aspirin (Ecotrin -) 81 mg PO DAILY [facility] Last Admin: 11/22/19 10:33 Dose: Not Given Heparin Sodium (Porcine) (Heparin -) 5,000 unit SQ TID [facility] Last Admin: 11/22/19 10:33 Dose: Not Given Metoprolol Succinate (Toprol Xl -) 25 mg PO BID [facility] Last Admin: 11/22/19 10:33 Dose: Not Given Morphine Sulfate (Morphine Sulfate) 1 mg IVPUSH Q4H PRN PRN Reason: PAIN LEVEL 7 - 10 Review of Systems - Review of Systems Constitutional: no symptoms reported Respiratory: denies Cough or Sputum Production Cardiovascular: as noted above Gastrointestinal: denies Nausea, Vomiting, Diarrhea, Constipation reports Abdominal Pain Genitourinary: no symptoms reported Musculoskeletal: no symptoms reported Endocrine: no symptoms reported - Objective Vital Signs: Last Vital Signs Temp Pulse Resp BP Pulse Ox 97.9 F 56 L 18 128/74 96 11/22/19 08:56 11/22/19 08:56 11/22/19 08:56 11/22/19 08:56 11/22/19 08:56 Intake & Output 11/19/19 11/20/19 11/21/19 11/22/19 23:59 23:59 23:59 23:59 Weight 220 lb Neck: Supple Negative JVD No Bruit Cardiovascular: S1 S2 Regular Rate and Rhythm no murmurs clicks or gallops Respiratory: clear to A&P Gastrointestinal: Soft Benign Normal Bowel Sounds Extremities: Negative edema Labs: Troponin, BNP 11/22/19 11/22/19 01:25 04:30 Troponin I < 0.02 0.10 H CBC, BMP 11/22/19 07:20 11/22/19 07:20 Hepatic Panel Total Bilirubin 0.5 mg/dL (0.2-1) 11/22/19 07:20 AST 14 U/L (15-37) L 11/22/19 07:20 ALT 17 U/L (13-61) 11/22/19 07:20 Alkaline Phosphatase 104 U/L (45-117) 11/22/19 07:20 Albumin 3.5 g/dl (3.4-5.0) 11/22/19 07:20 INR, PTT INR 1.01 (0.83-1.09) 11/22/19 07:20 Assessment/Plan ASSESSMENT: 1. Chest pain syndrome clinical presentation of which is atypical for coronary artery disease angina pectoris, costochondritis to be considered in the differential diagnosis 2. Borderline elevation of troponin I level not consistent with acute coronary syndrome lack of clinical presentation and lack of dynamic electrocardiographic changes, borderline abnormal electrocardiogram- early repolarization change 3. Hypertensive cardiovascular disease 4. History of bronchial asthma 5. History of anemia 6. Exogenous obesity PLAN: 1. Continue Aspirin but reduced dosage to 81 mg once daily 2. Agree with continuation of beta-agata therapy, heart rate permitting- baseline sinus bradycardia, asymptomatic 3. Continue Diovan therapy 4. Withhold Norvasc therapy 5. Trend troponin I levels to document peak 6. Echocardiography for evaluation of left ventricular systolic function/ valvular function 7. Recommend eventual stress echocardiography or myocardial perfusion imaging study for further evaluation of coronary artery disease- primary team to decide inpatient versus outpatient testing Above was reviewed in detail with the patient Rubio Lawrence MD
--- NOTE | 2019-11-22 13:26 | CONS ---
DATE OF CONSULTATION: DATE OF DICTATION: 11/22/2019 CONSULTATION REQUESTED BY: Hospitalist Service. CHIEF COMPLAINT: Chest discomfort, elevated troponin I, evaluation of cardiovascular status. HISTORY OF PRESENT ILLNESS: A 49-year-old obese female of descent with known history of hypertensive cardiovascular disease, bronchial asthma, post-bariatric surgery for morbid obesity and chronic anemia, who was in her usual state of health until presenting to [facility] emergency room with recurrent episodes of left upper chest discomfort which has been noted for the last day or so. Chest discomfort was described as sharp pain with exacerbation with left upper extremity movement and with deep inspiration. The patient did not report any associated symptomatology, i.e., diaphoresis. The patient denied any associated dyspnea. The patient does not report any history of orthopnea, paroxysmal nocturnal dyspnea or peripheral edema. The patient denied any palpitations, dizziness, lightheadedness or syncope. The patient denied any fatigue or tiredness. The patient was noted to have mildly elevated troponin I levels. PAST MEDICAL HISTORY: Hypertensive cardiovascular disease, bronchial asthma, post-bariatric surgery for morbid obesity, cholecystectomy and hysterectomy. SOCIAL HISTORY: Nonsmoker. FAMILY HISTORY: No family history of premature coronary artery disease. ALLERGIES: SHELLFISH. MEDICAL THERAPY: At home included Diovan, dosage unknown, Norvasc, dosage unknown. REVIEW OF SYSTEMS: Head and Neck: Denies headache, photophobia, blurring of vision. Respiratory: No cough or sputum production. Cardiovascular: As noted above. Gastrointestinal: No nausea, vomiting, diarrhea, abdominal discomfort. Genitourinary: No symptoms reported. PHYSICAL EXAMINATION: Vital Signs: Blood pressure is 128/74 mmHg, pulse rate is 66 beats per minute. Head and Neck: Pupils reactive to light and accommodation. Extraocular muscles intact. Anicteric sclerae. Negative JVD. No bruit appreciated. Chest: Clear to auscultation and percussion. Cardiovascular: S1, S2 regular, no murmurs, clicks or gallops. Abdomen: Soft, benign. Normoactive bowel sounds. Extremities: Negative edema. Intact peripheral pulses. No calf tenderness. ELECTROCARDIOGRAM: Reveals sinus bradycardia with ST segment abnormalities consistent with early repolarization. LABORATORY: CBC revealed white cell count 5.7, hemoglobin 11.1, platelet count 287. INR 1.0. Basic metabolic profile reveals sodium 142, potassium 3.6, BUN 10.2, creatinine 0.8. Hemoglobin A1C 5.9. Troponin 0.1. Cholesterol 152, LDL 83, HDL 59 with a triglyceride of 41. ASSESSMENT: 1. Chest pain syndrome, clinical presentation of which is atypical for coronary artery disease, angina pectoris, costochondritis to be considered in the differential diagnosis. 2. Borderline elevation of troponin I level, not consistent with acute coronary syndrome, lack of clinical presentation and lack of dynamic electrocardiographic changes, borderline abnormal electrocardiogram, early repolarization change. 3. Hypertensive cardiovascular disease. 4. History bronchial asthma. 5. History of anemia. 6. Exogenous obesity. RECOMMENDATION: 1. Continuation of aspirin therapy but reduce dosage to 81 mg once daily. 2. Continuation of beta agata therapy, heart rate permitting, sinus bradycardia noted. The patient is asymptomatic. 3. Continuation of Diovan therapy. 4. Withholding Norvasc therapy. 5. Trend troponin I levels to document peak. 6. Echocardiography for evaluation of left ventricular systolic function, valvular function. 7. Recommend eventual stress echocardiography or myocardial perfusion imaging study for further evaluation of coronary artery disease, primary team to decide inpatient versus outpatient testing. Above was reviewed in detail with the patient. Thank you for your kind referral. CLEMENTE BHATT M.D. [id number]
[2019-11-22 15:10] VITALS: BP 118/70; PULSE 53; TEMP 98
--- NOTE | 2019-11-22 17:33 | EKG ---
Test Reason : Blood Pressure : / mmHG Vent. Rate : 057 BPM Atrial Rate : 057 BPM P-R Int : 208 ms QRS Dur : 090 ms QT Int : 450 ms P-R-T Axes : 061 -12 009 degrees QTc Int : 438 ms SINUS BRADYCARDIA MODERATE VOLTAGE CRITERIA FOR LVH, MAY BE NORMAL VARIANT BORDERLINE ECG WHEN COMPARED WITH ECG OF 22-NOV-2019 01:12, NO SIGNIFICANT CHANGE WAS FOUND Confirmed by MILLER LOZANO, CLEMENTE ([id number]) on 11/22/2019 5:33:41 PM Referred By: Confirmed By:CLEMENTE BHATT MD
--- NOTE | 2019-11-22 17:34 | EKG ---
Test Reason : Blood Pressure : / mmHG Vent. Rate : 067 BPM Atrial Rate : 067 BPM P-R Int : 194 ms QRS Dur : 078 ms QT Int : 422 ms P-R-T Axes : 072 003 041 degrees QTc Int : 445 ms NORMAL SINUS RHYTHM NORMAL ECG WHEN COMPARED WITH ECG OF 22-FEB-2016 19:32, NO SIGNIFICANT CHANGE WAS FOUND Confirmed by CLEMENTE BHATT MD ([id number]) on 11/22/2019 5:34:01 PM Referred By: Confirmed By:CLEMENTE BHATT MD
--- NOTE | 2019-11-22 17:38 | DS ---
Physical Exam: SUBJECTIVE: Patient seen and examined. She denies chest pain, SOB, palpitations. OBJECTIVE: Vital Signs Period Temp Pulse Resp BP Sys/Gonzalez Pulse Ox Last 24 Hr 97.7 F-98 F 53-65 15-20 118-159/70-105 96-100 PHYSICAL EXAM GENERAL: The patient is awake, alert, and fully oriented, in no acute distress. LUNGS: Breath sounds equal, clear to auscultation bilaterally, no wheezes, no crackles, no accessory muscle use. HEART: Regular rate and rhythm, S1, S2 without murmur, rub or gallop. ABDOMEN: Obese, soft, nontender, nondistended, normoactive bowel sounds, no guarding, no rebound, no hepatosplenomegaly, no masses. EXTREMITIES: 2+ pulses, warm, well-perfused, no edema. LABS Laboratory Results - last 24 hr 11/22/19 11/22/19 11/22/19 01:25 01:25 01:25 WBC 6.5 RBC 5.07 Hgb 11.8 Hct 37.0 MCV 72.9 L MCH 23.2 L MCHC 31.9 L RDW 14.8 Plt Count 303 D MPV 8.5 Absolute Neuts (auto) 2.2 Neutrophils % 34.4 L Neutrophils % (Manual) Band Neutrophils % Lymphocytes % 59.6 H Lymphocytes % (Manual) Monocytes % 4.1 Monocytes % (Manual) Eosinophils % 0.5 Eosinophils % (Manual) Basophils % 1.4 Basophils % (Manual) Myelocytes % (Man) Promyelocytes % (Man) Blast Cells % (Manual) Nucleated RBC % 0 Metamyelocytes Hypochromia Platelet Estimate Polychromasia Poikilocytosis Anisocytosis Microcytosis Macrocytosis PT with INR 11.00 INR 0.93 PTT (Actin FS) 34.5 D-Dimer Sodium Potassium Chloride Carbon Dioxide Anion Gap BUN Creatinine Est GFR (CKD-EPI)AfAm Est GFR (CKD-EPI)NonAf Random Glucose Hemoglobin A1c % Calcium Phosphorus Magnesium Total Bilirubin AST ALT Alkaline Phosphatase Creatine Kinase 182 Creatine Kinase Index 0.6 CK-MB (CK-2) 1.1 Troponin I < 0.02 Total Protein Albumin Triglycerides Cholesterol Total LDL Cholesterol HDL Cholesterol 11/22/19 11/22/19 11/22/19 01:25 01:25 01:25 WBC RBC Hgb Hct MCV MCH MCHC RDW Plt Count MPV Absolute Neuts (auto) Neutrophils % Neutrophils % (Manual) Band Neutrophils % Lymphocytes % Lymphocytes % (Manual) Monocytes % Monocytes % (Manual) Eosinophils % Eosinophils % (Manual) Basophils % Basophils % (Manual) Myelocytes % (Man) Promyelocytes % (Man) Blast Cells % (Manual) Nucleated RBC % Metamyelocytes Hypochromia Platelet Estimate Polychromasia Poikilocytosis Anisocytosis Microcytosis Macrocytosis PT with INR INR PTT (Actin FS) D-Dimer 266 Sodium 143 Potassium 3.5 Chloride 109 H Carbon Dioxide 25 Anion Gap 9 BUN 13.4 Creatinine 0.9 Est GFR (CKD-EPI)AfAm 87.63 Est GFR (CKD-EPI)NonAf 75.61 Random Glucose 107 H Hemoglobin A1c % Calcium 9.6 Phosphorus Magnesium 2.1 Total Bilirubin 0.3 AST 16 ALT 17 Alkaline Phosphatase 110 Creatine Kinase Creatine Kinase Index CK-MB (CK-2) Troponin I Total Protein 7.8 Albumin 3.8 Triglycerides Cholesterol Total LDL Cholesterol HDL Cholesterol 11/22/19 11/22/19 11/22/19 04:30 07:20 07:20 WBC 5.7 RBC 4.73 Hgb 11.1 Hct 34.9 MCV 73.7 L MCH 23.5 L MCHC 31.8 L RDW 14.9 Plt Count 287 MPV 8.8 Absolute Neuts (auto) 2.1 Neutrophils % No Result Required. Neutrophils % (Manual) 49.0 Band Neutrophils % 0.0 Lymphocytes % No Result Required. Lymphocytes % (Manual) 36.7 Monocytes % Monocytes % (Manual) 3 L Eosinophils % Eosinophils % (Manual) 1.0 Basophils % Basophils % (Manual) 0.0 Myelocytes % (Man) 0 Promyelocytes % (Man) 0 Blast Cells % (Manual) 0 Nucleated RBC % 0 Metamyelocytes 0 Hypochromia 1+ Platelet Estimate Normal Polychromasia 0 Poikilocytosis 0 Anisocytosis 1+ Microcytosis 1+ Macrocytosis 0 PT with INR 11.90 INR 1.01 PTT (Actin FS) D-Dimer Sodium Potassium Chloride Carbon Dioxide Anion Gap BUN Creatinine Est GFR (CKD-EPI)AfAm Est GFR (CKD-EPI)NonAf Random Glucose Hemoglobin A1c % Calcium Phosphorus Magnesium Total Bilirubin AST ALT Alkaline Phosphatase Creatine Kinase Creatine Kinase Index CK-MB (CK-2) Troponin I 0.10 H Total Protein Albumin Triglycerides Cholesterol Total LDL Cholesterol HDL Cholesterol 11/22/19 11/22/19 11/22/19 07:20 07:20 13:39 WBC RBC Hgb Hct MCV MCH MCHC RDW Plt Count MPV Absolute Neuts (auto) Neutrophils % Neutrophils % (Manual) Band Neutrophils % Lymphocytes % Lymphocytes % (Manual) Monocytes % Monocytes % (Manual) Eosinophils % Eosinophils % (Manual) Basophils % Basophils % (Manual) Myelocytes % (Man) Promyelocytes % (Man) Blast Cells % (Manual) Nucleated RBC % Metamyelocytes Hypochromia Platelet Estimate Polychromasia Poikilocytosis Anisocytosis Microcytosis Macrocytosis PT with INR INR PTT (Actin FS) D-Dimer Sodium 142 Potassium 3.6 Chloride 108 H Carbon Dioxide 30 Anion Gap 5 L BUN 10.2 Creatinine 0.8 Est GFR (CKD-EPI)AfAm 101.04 Est GFR (CKD-EPI)NonAf 87.18 Random Glucose 92 Hemoglobin A1c % 5.9 Calcium 9.2 Phosphorus 3.5 Magnesium 2.2 Total Bilirubin 0.5 AST 14 L ALT 17 Alkaline Phosphatase 104 Creatine Kinase Creatine Kinase Index CK-MB (CK-2) Troponin I 0.04 Total Protein 7.0 Albumin 3.5 Triglycerides 41 Cholesterol 152 Total LDL Cholesterol 83 HDL Cholesterol 59 HOSPITAL COURSE: Date of Admission:11/22/19 Date of Discharge: 11/22/19 Minutes to complete discharge: 30 Discharge Summary Problems reviewed: Yes Reason For Visit: CHEST PAIN Current Active Problems Obesity (BMI 30-39.9) (Chronic) Sinus bradycardia (Acute) Hypertension, uncontrolled (Chronic) Chest pain (Acute) Hospital Course: This is a 49 year old woman with a history of HTN, asthma who presented to ED on November 22 complaining of sharp left-sided chest pain brought on by and worsened by raising her left arm. The pain resolved after 2 hours, after she arrived to the ER. On exam, there was chest wall tenderness with palpation. EKG was unremarkable. Troponin was <0.02. She was observed on telemetry. She was seen by Dr. Lawrence. Repeat troponin was 0.10 but since there were no changes on EKG and her symptoms were atypical, this was thought not to be acute coronary syndrome. She was treated aspirin and Toprol XL. Echo and stress test were recommended. She was bradycardic while in the hospital and so Toprol XL was not given. Chest pain resolved. A third troponin was 0.04. HbA1c was 5.9. She was counselled on diet, exercise, and weight loss. She is being discharged home on November 22. She is advised to schedule an appointment with Dr. Lawrence for follow up and to arrange for echocardiogram and stress test. Condition: Stable - Instructions Diet, Activity, Other Instructions: You came to the ER at [facility] on November 22 because of sharp pain in the left side of your chest which was worse with movement of your left arm. You were treated with aspirin and nitroglycerin. Your EKG was normal. You were observed on a monitoring specialist. You had no arrhythmias and no evidence of a heart attack. You were seen by a harvester operator, Dr. Rubio Lawrence, who recommended that you have an echocardiogram and a stress test which can be done as an outpatient. Your blood pressure was high and was treated with valsartan and Toprol XL. Toprol XL could not be given because you had a slow heart rate. The pain was thought to be musculoskeletal in origin. You are being discharged home on November 22. You should stop taking Norvasc (amlodipine) for your blood pressure if you have been taking it. A prescription for Diovan (valsartan) has been sent to [facility]. You should also take a baby aspirin (81 mg) daily. Please schedule an appointment with the harvester operator, Dr. Rubio Lawrence, next week. Please schedule an appointment with your primary care provider, Dr. Nina Bolton, next week. Disposition: HOME - Home Medications Comprehensive Discharge Medication List: Ambulatory Orders Aspirin Coated [Ecotrin -] 81 mg PO DAILY tablet.ec 11/22/19 Valsartan [Diovan] 40 mg PO DAILY #30 tablet 11/22/19 This patient is new to me today: Yes Date on this admission: 11/22/19 Emergency Visit: Yes ED Registration Date: 11/22/19 Care time: The patient presented to the Emergency Department on the above date and was hospitalized for further evaluation of their emergent condition. Critical Care patient: No - Discharge Referral Referred to [facility] Med P.C.: No
[2019-11-23] MEDS ORDERED: metoPROLOL SUCCINATE 25 MG TAB.SR.24H (FP) PO SCH (10:00)
[2019-11-23] MEDS ORDERED: VALSARTAN 40 MG TABLET (FP) PO SCH (10:00)
== END 2019-11-22 19:10 | disposition home or self-care (01) ==
LOC: JER 01:07 → JERBED 05:37 → J4W 08:42
PROVIDERS: ADMIT Internal Medicine; ATTEND Internal Medicine
PROC: 3E013GC Introduction of Other Therapeutic Substance into Subcutaneous Tissue, Percutaneous Approach (ICD-10-PCS; principal; 2019-11-22)
DX: R07.89 Other chest pain (principal); R00.1 Bradycardia, unspecified; I10 Essential (primary) hypertension; J45.909 Unspecified asthma, uncomplicated; E66.9 Obesity, unspecified; Z68.37 Body mass index [BMI] 37.0-37.9, adult; Z98.84 Bariatric surgery status; Z87.442 Personal history of urinary calculi; Z91.013 Allergy to seafood
CPT/HCPCS: 36415; 71045-TC-FY; 80053; 80061; 82550; 82553; 83036; 83721; 83735; 84100; 84484; 85025; 85379; 85610; 85730; 93005; 93010; 96372; 99285-25; G0378; J1644

== ENCOUNTER 2021-02-23 23:15 | Observation (INO) | payer OTHER ==
[2021-02-23 23:28] VITALS: BMI 36.2
[2021-02-23 23:43] LABS: BASO % 0.9 % (0-2.0); EOS % 0.9 % (0-4.5); HEMOGLOBIN 12.3 GM/dL (10.7-15.3); LYMPH % 63.8 % (8-40); MCH 23.9 pg (25.7-33.7); MCHC 32.4 g/dl (32.0-36.0); MEAN CELL VOLUME 73.7 fl (80-96); MEAN PLT VOLUME 8.6 fl (7.5-11.1); MONO % 7.4 % (3.8-10.2); PLATELET COUNT 285 K/MM3 (134-434); RBC 5.15 M/mm3 (3.60-5.2); RDW 15.7 % (11.6-15.6); WHITE BLOOD COUNT 6.8 K/mm3 (4.0-10.0)
[2021-02-23 23:53] LABS: CHLORIDE 108 mmol/L (98-107); POTASSIUM 3.7 mmol/L (3.5-5.1); SODIUM 142 mmol/L (136-145)
[2021-02-23 23:55] LABS: CALCIUM 9.6 mg/dL (8.5-10.1)
[2021-02-23 23:56] LABS: ALBUMIN 3.5 g/dl (3.4-5.0); ANION GAP 8 MMOL/L (8-16); BLOOD UREA NITROGEN 16.8 mg/dL (7-18); CO2 27 mmol/L (21-32); GLUCOSE,RANDOM 106 mg/dL (74-106)
[2021-02-23 23:57] LABS: INR 0.86 (0.83-1.09); PROTHROMBIN TIME (PATIENT) 10.6 SEC (9.7-13.0)
[2021-02-23 23:59] LABS: SGOT/AST 13 U/L (15-37); SGPT/ALT 21 U/L (13-61)
[2021-02-24] LABS: BILIRUBIN,TOTAL 0.2 mg/dL (0.2-1)
[2021-02-24 00:01] LABS: TOT PROT 7.4 g/dl (6.4-8.2)
[2021-02-24 00:02] LABS: ALK PHOS 109 U/L (45-117)
[2021-02-24 00:51] LABS: ANISOCYTOSIS 0; HELMET CELLS 0; HOWELL-JOLLY BODIES 0; MACROCYTOSIS 0; OVALOCYTE 0; PLATELET ESTIMATE NORMAL; ROULEAU 0; SICKELED CELLS 0; TARGET CELLS 0; TEAR DROP CELLS 0; TOXIC GRANULATION 0
[2021-02-24 01:50] LABS: URINE APPEARANCE CLEAR; URINE BILIRUBIN NEGATIVE (NEGATIVE); URINE COLOR YELLOW; URINE GLUCOSE (UA) NEGATIVE (NEGATIVE); URINE KETONE NEGATIVE (NEGATIVE); URINE LEUK ESTERASE NEGATIVE (NEGATIVE); URINE NITRITE NEGATIVE (NEGATIVE); URINE PROTEIN NEGATIVE (NEGATIVE); URINE UROBILINOGEN 0.2 mg/dL (0.2-1.0)
[2021-02-24] MEDS ORDERED: ACETAMINOPHEN 1000 MG/100 ML VIAL (NON FORMULARY) IVPB ONE (02:07)
[2021-02-24] MEDS ORDERED: LIDOCAINE 5% TOPICAL PATCH TP ONE (02:10)
[2021-02-24] MEDS ORDERED: ACETAMINOPHEN INJECTION 100 ML IVPB ONE (02:16)
[2021-02-24] MEDS ORDERED: LIDOCAINE 5% TOPICAL PATCH ONE (02:17)
[2021-02-24] MEDS ORDERED: KETOROLAC TROMETHAMINE 30 MG/1 ML VIAL IVPUSH ONE (03:36)
[2021-02-24] MEDS ORDERED: ACETAMINOPHEN 500 MG TABLET (FP) PO PRN (03:47)
[2021-02-24] MEDS ORDERED: KETOROLAC TROMETHAMINE 30 MG/1 ML VIAL ONE (04:09)
[2021-02-24] MEDS ORDERED: ENOXAPARIN NA (PORCINE) 40 MG/0.4 ML DISP.SYRIN SQ ONE (09:04)
[2021-02-24 09:10] VITALS: PULSE 55; TEMP 98.7
[2021-02-24] MEDS ORDERED: ENOXAPARIN NA (PORCINE) 40 MG/0.4 ML DISP.SYRIN SQ SCH (10:00)
[2021-02-24 12:13] VITALS: BP 139/89
[2021-02-24] MEDS ORDERED: LIDOCAINE PATCH REMOVAL MC SCH (22:00)
== END 2021-02-24 12:05 | disposition home or self-care (01) ==
LOC: JER 23:15 → JERBED 02-24 01:59
PROVIDERS: ADMIT Hospitalist
PROC: 3E033NZ Introduction of Analgesics, Hypnotics, Sedatives into Peripheral Vein, Percutaneous Approach (ICD-10-PCS; principal; 2021-02-24)
PROC: 3E023GC Introduction of Other Therapeutic Substance into Muscle, Percutaneous Approach (ICD-10-PCS; 2021-02-24)
PROC: 3E033GC Introduction of Other Therapeutic Substance into Peripheral Vein, Percutaneous Approach (ICD-10-PCS; 2021-02-24)
DX: I10 Essential (primary) hypertension (principal); J45.909 Unspecified asthma, uncomplicated; Z91.013 Allergy to seafood; R00.1 Bradycardia, unspecified; Z29.9 Encounter for prophylactic measures, unspecified; N20.0 Calculus of kidney; Z98.84 Bariatric surgery status; Z68.36 Body mass index [BMI] 36.0-36.9, adult; E66.9 Obesity, unspecified; Z87.19 Personal history of other diseases of the digestive system
CPT/HCPCS: 36415; 71045-TC-FY; 80053; 81003; 82550; 84484; 85025; 85610; 85730; 93005; 93010; 96372; 96374; 96375; 99285-25; C9803; G0378; J0131; U0003; U0005

== ENCOUNTER 2023-06-22 09:16 | Emergency (ER) | payer OTHER ==
[2023-06-22 09:20] VITALS: BP 126/87; PULSE 75; RESP 18; TEMP 99.1; BMI 30.9
[2023-06-22 10:48] LABS: BASO % 0.5 % (0-2.0); EOS % 0.5 % (0-4.5); HEMATOCRIT 32.2 % (32.4-45.2); HEMOGLOBIN 10.7 GM/dL (10.7-15.3); LYMPH % 24.3 % (8-40); MCH 24.4 pg (25.7-33.7); MCHC 33.2 g/dl (32.0-36.0); MEAN CELL VOLUME 73.3 fl (80-96); MEAN PLT VOLUME 8.2 fl (7.5-11.1); MONO % 7.5 % (3.8-10.2); NEUT % 67.2 % (42.8-82.8); PLATELET COUNT 252 10^3/uL (134-434); RBC 4.39 M/mm3 (3.60-5.2); RDW 15.3 % (11.6-15.6); WHITE BLOOD COUNT 7.7 K/mm3 (4.0-10.0)
[2023-06-22 11:10] LABS: POTASSIUM 4.6 mmol/L (3.5-5.1)
[2023-06-22 11:12] LABS: CALCIUM 8.9 mg/dL (8.5-10.1); INR 1.11 (0.83-1.09); PROTHROMBIN TIME (PATIENT) 12.9 SEC (9.7-13.0)
[2023-06-22 11:13] LABS: ALBUMIN 3.2 g/dl (3.4-5.0); BLOOD UREA NITROGEN 7.2 mg/dL (7-18)
[2023-06-22 11:14] LABS: ACTIVATED PTT 31.9 SECONDS (25.2-36.5)
[2023-06-22 11:16] LABS: CREATININE 0.8 mg/dL (0.55-1.3)
[2023-06-22 11:18] LABS: BILIRUBIN,TOTAL 0.7 mg/dL (0.2-1); TOT PROT 6.9 g/dl (6.4-8.2)
== END 2023-06-22 13:31 | disposition home or self-care (01) ==
LOC: JER 09:16
DX: R07.9 Chest pain, unspecified (principal)
CPT/HCPCS: 0241U-QW; 36415; 71045-TC-FY; 80053; 84484; 85025; 85610; 85730; 93005; 93010; 99285-25

== ENCOUNTER 2024-01-13 11:45 | Day surgery (SDC) | payer OTHER ==
[2024-01-13] MEDS: FERRIC CARBOXYMALTOSE 750 MG in SODIUM CHLORIDE 250 ML IVPB ONE (12:09)
[2024-01-13 13:35] VITALS: BP 127/75; PULSE 72; RESP 16; TEMP 98.6
== END 2024-01-13 13:35 | disposition home or self-care (01) ==
LOC: FINFUSION 11:45 → FM/S 11:46 → FINFUSION 13:35
PROC: 3E033GC Introduction of Other Therapeutic Substance into Peripheral Vein, Percutaneous Approach (ICD-10-PCS; principal; 2024-01-13)
DX: D50.9 Iron deficiency anemia, unspecified (principal)
CPT/HCPCS: 96365; J1439